=== PATIENT | female | born 1955 | race Caucasian/White ===

== ENCOUNTER 2017-05-01 06:40 | Day surgery (SDC) | payer MEDICAID ==
[2017-04-26 10:36] LABS: HEMATOCRIT 41.9 % (36.0-47.0); HEMOGLOBIN 14.1 g/dL (12.0-15.5); MEAN CORPUSCULAR HEMOGLOBIN 30.8 pg (27.0-33.4); MEAN CORPUSCULAR HGB CONC 33.7 g/dL (32.0-36.0); MEAN CORPUSCULAR VOLUME 92 fl (80-97); PLATELET COUNT 174 10^3/uL (150-450); RED BLOOD COUNT 4.57 10^6/uL (3.72-5.28); RED CELL DISTRIBUTION WIDTH 13.2 % (11.5-14.0); WHITE BLOOD COUNT 6.6 10^3/uL (4.0-10.5)
--- NOTE | 2017-04-26 14:04 | EKG REPORT ---
SEVERITY:- NORMAL ECG - SINUS RHYTHM : Confirmed by: Milton Tineo MD 26-Apr-2017 14:03:35
[~2017-05-01 06:40] MED LIST: CEFAZOLIN 1 GM/D5W RTU 1 GM/50 ML RTUPB IV PRN; LACTATED RINGERS 1000 ML IV PRN; LIDOCAINE 0.5% INJ-PF (5 MG/ML) 50 ML SDV SUBCUT PRN
[2017-05-01] MEDS ORDERED: LIDOCAINE 1% INJ-PF (10 MG/ML) 30 ML SDV ONE (07:17)
[2017-05-01] MEDS ORDERED: ALBUTEROL SULFATE 0.083% NEB 2.5 MG/3 ML AMPUL NEB ONE (08:13)
[2017-05-01] MEDS ORDERED: KETAMINE HCL INJ 500 MG/10 ML VIAL ONE (09:43)
[2017-05-01] MEDS ORDERED: MIDAZOLAM 2 MG/2 ML INJ ONE (09:43)
[2017-05-01] MEDS ORDERED: FENTANYL CITRATE INJ/PF 100 MCG/2 ML AMPUL ONE (09:43)
[2017-05-01] MEDS ORDERED: PROPOFOL INJ 200 MG/20 ML VIAL IV ONE (09:45)
[2017-05-01] MEDS ORDERED: PROMETHAZINE HCL INJ 25 MG/1 ML VIAL IV PRN (10:44)
[2017-05-01] MEDS ORDERED: FENTANYL CITRATE INJ/PF 100 MCG/2 ML AMPUL IV PRN ×3 (10:44)
[2017-05-01] MEDS ORDERED: DIPHENHYDRAMINE HCL 50 MG/ML VIAL IV PRN (10:44)
--- NOTE | 2017-05-01 10:54 | Operative Report ---
Operative Report DATE OF SURGERY: 05/01/17 PREOPERATIVE DIAGNOSIS: Lipomas right upper extremity POSTOPERATIVE DIAGNOSIS: Same with small suspicious skin lesion right upper extremity OPERATION: 1. Excision of right upper extremity lipoma, lateral posterior aspect. 2. Excision of local skin lesion and underlying lipoma mid right upper arm lateral aspect SURGEON: MADONNA PISANO 1ST LETTER SORTING MACHINE OPERATOR: GAYLE SANTACRUZ ANESTHESIA: LMAC TISSUE REMOVED OR ALTERED: Lipomas and skin lesion submitted in one container COMPLICATIONS: None ESTIMATED BLOOD LOSS: Scant INTRAOPERATIVE FINDINGS: See below PROCEDURE: Patient was seen in the preop holding area with the right upper extremity was marked. Attention directed to 2 areas of the upper arm, small lipoma laterally and posteriorly, and then a second area more anterior in the mid upper right arm ; The second area involved a lipomatous subcutaneous mass, as well as an overlying skin lesion approximately 2 mm in diameter suspicious for cell carcinoma. Patient agreed to the plan occluding removal of the 2 subcutaneous masses as well as the overlying skin lesion. Patient taken the main operating room where LMAC anesthesia was induced. Dad positioned appropriately to expose the right upper extremity, with pillows placed under the right arm. The right upper arm lateral posterior aspect was prepped and draped sterile fashion. Surgical plan surgical timeout were conducted. Skin was anesthetized 1% plain lidocaine. The posterior lateral lipoma was excised first. A small incision was made over the lipoma approximately 1/2 cm in diameter. The lipoma was prior to out using a hemostats. It was a well consolidated 2 cm oval mass. Wound closed after hemostasis achieved with a 3-0 Vicryl. The second area of concern was slightly anterior and cephalad to the first incision. The small skin lesion and surrounding skin anesthetized 1% plain lidocaine. A small ellipse was made to excise the skin lesion. We subsequently undermined the subcutaneous lipomatous tissue which was excised using electrocautery. Of note, however, this did not just of a consolidated mass. The region of subcutaneous tissue was submitted in container as the first specimen as well as a small skin lesion. Hemostasis for the second excision was achieved with electrocautery. Wound closed with 3-0 Vicryl benzoin and Steri-Strips. Patient tolerated the procedure well, taken recovery in stable condition.
--- NOTE | 2017-05-01 10:58 | PDOC DISCHARGE SUMMARY ---
Discharge Summary (SDC) - Discharge Final Diagnosis: Lipoma of right arm Date of Surgery: 05/01/17 Discharge Date: 05/01/17 Condition: Stable Treatment or Instructions: Wound care: You may shower in 48 hours. Do not remove paper bandaids (steri strips). Warm water may wash over area, pat dry, cover if needed. Do not scrub. Steri strips will fall off on their on in 1-2 weeks. Pain Medication: You may take Tramadol 10mg one pill every six hours as needed for pain. Activity restriction: Limit use of right arm until follow up appointment in 7-10 days. Follow up appointment: Follow up with Rafaela Blunt PA-C at [facility] in 7-10 days. Call clinic sooner with any questions/concerns or if area becomes red, foul- smelling drainage, or swollen. [facility]: [phone] Prescriptions: Ketorolac Tromethamine [Toradol 10 mg Tablet] 10 mg PO Q6HP PRN #25 tablet PRN Reason: Referrals: KURTIS AMARAL FNP [Primary Care Provider] - Discharge Diet: As Tolerated Discharge Activity: Activity As Tolerated Report the Following to Your Physician Immediately: Fever over 101 Degrees, Swelling, Warmth, Drainage-Foul Smelling
[2017-05-01 12:57] VITALS: BP 140/82
[2017-05-01] MEDS ORDERED: LIDOCAINE 2% INJ-PF (20 MG/ML) 2 ML AMPUL ONE (14:46)
== END 2017-05-01 12:45 | disposition home or self-care (01) ==
LOC: OROUT 06:40
PROVIDERS: ATTEND Surgery
PROC: 0HBBXZX Excision of Right Upper Arm Skin, External Approach, Diagnostic (ICD-10-PCS; 2017-05-01)
PROC: 0JBD0ZZ Excision of Right Upper Arm Subcutaneous Tissue and Fascia, Open Approach (ICD-10-PCS; principal; 2017-05-01 09:30)
DX: D17.21 Benign lipomatous neoplasm of skin and subcutaneous tissue of right arm (principal); B07.9 Viral wart, unspecified; I10 Essential (primary) hypertension; F17.210 Nicotine dependence, cigarettes, uncomplicated; E66.9 Obesity, unspecified; Z68.42 Body mass index [BMI] 45.0-49.9, adult; Z88.8 Allergy status to other drugs, medicaments and biological substances; Z79.1 Long term (current) use of non-steroidal anti-inflammatories (NSAID); Z79.899 Other long term (current) drug therapy
CPT/HCPCS: 93005; 36415; 85027; 88304 ×2; 93010; 94640; 11402; J2250; J0690; J3010; J3490 ×3; J2704; 400

== ENCOUNTER → 2017-06-18 | Outpatient (CLI) | payer MEDICAID ==
--- NOTE | 2017-06-18 10:31 | RADIOLOGY REPORT (SQ) ---
EXAM DESCRIPTION: CHEST PA/LATERAL COMPLETED DATE/TIME: 06/18/2017 8:35 am REASON FOR STUDY: COUGH COMPARISON: None. EXAM PARAMETERS: NUMBER OF VIEWS: two views TECHNIQUE: Digital Frontal and Lateral radiographic views of the chest acquired. RADIATION DOSE: NA LIMITATIONS: none FINDINGS: LUNGS AND PLEURA: No opacities, masses or pneumothorax. No pleural effusion. MEDIASTINUM AND HILAR STRUCTURES: No masses or contour abnormalities. HEART AND VASCULAR STRUCTURES: Heart normal size. No evidence for failure. BONES: No acute findings. Mild thoracic spondylosis. HARDWARE: None in the chest. OTHER: No other significant finding. IMPRESSION: NO SIGNIFICANT RADIOGRAPHIC FINDING IN THE CHEST. TECHNICAL DOCUMENTATION: JOB ID: [id number] [employer]- All Rights Reserved Reading location - IP/workstation name: [email or web address]
== END ==
LOC: OD 08:23
PROVIDERS: ATTEND Physician Assistant
DX: R05 Cough (principal)
CPT/HCPCS: 71046; 87070; 87077; 87205

== ENCOUNTER → 2017-06-28 | Outpatient (CLI) | payer MEDICAID ==
[2017-06-28 10:06] LABS: APPEARANCE,URINE CLEAR; BILIRUBIN,URINE NEGATIVE (NEGATIVE); COLOR,URINE YELLOW; GLUCOSE, URINE NEGATIVE (NEGATIVE); KETONES,URINE NEGATIVE (NEGATIVE); LEUKOCYTE ESTERASE,URINE NEGATIVE (NEGATIVE); NITRITE,URINE NEGATIVE (NEGATIVE); PROTEIN,URINE NEGATIVE (NEGATIVE); URINE SPECIFIC GRAVITY 1.024; UROBILINOGEN,URINE NEGATIVE mg/dL (<2.0)
[2017-06-28 10:08] LABS: ABSOLUTE EOSINOPHILS # (AUTO) 0.2 10^3/uL (0.0-0.6); ABSOLUTE LYMPHOCYTES (AUTO) 1.9 10^3/uL (0.5-4.7); ABSOLUTE MONOCYTES (AUTO) 0.4 10^3/uL (0.1-1.4); BASOPHILS % (AUTO) 0.7 % (0-2); EOSINOPHILS % (AUTO) 3.5 % (0-6); HEMATOCRIT 39.6 % (36.0-47.0); HEMOGLOBIN 13.3 g/dL (12.0-15.5); LYMPHOCYTES % (AUTO) 34.8 % (13-45); MEAN CORPUSCULAR HEMOGLOBIN 30.5 pg (27.0-33.4); MEAN CORPUSCULAR HGB CONC 33.5 g/dL (32.0-36.0); MEAN CORPUSCULAR VOLUME 91 fl (80-97); MONOCYTES % (AUTO) 7.6 % (3-13); PLATELET COUNT 150 10^3/uL (150-450); RED BLOOD COUNT 4.34 10^6/uL (3.72-5.28); RED CELL DISTRIBUTION WIDTH 13.7 % (11.5-14.0); SEGMENTED NEUTROPHILS % (AUTO) 53.4 % (42-78); TOTAL CELLS COUNTED % (AUTO) 100 %; WHITE BLOOD COUNT 5.6 10^3/uL (4.0-10.5)
[2017-06-28 10:29] LABS: ANION GAP 9 (5-19); BLOOD UREA NITROGEN 20 mg/dL (7-20); CALCIUM 9.1 mg/dL (8.4-10.2); CARBON DIOXIDE 25 mmol/L (22-30); CHLORIDE 108 mmol/L (98-107); GLUCOSE 86 mg/dL (75-110); POTASSIUM 4.6 mmol/L (3.6-5.0); SODIUM 141.5 mmol/L (137-145)
--- NOTE | 2017-06-28 13:09 | EKG REPORT ---
SEVERITY:- OTHERWISE NORMAL ECG - SINUS RHYTHM BORDERLINE LEFT AXIS DEVIATION : Confirmed by: Milton Tineo MD 28-Jun-2017 13:07:58
== END ==
LOC: OD 08:43
PROVIDERS: ATTEND Orthopaedic Surgery
DX: Z01.818 Encounter for other preprocedural examination (principal)
CPT/HCPCS: 36415; 80048; 81001; 85025; 93005; 93010

== ENCOUNTER 2017-07-25 07:57 | Inpatient (IN) | payer MEDICAID ==
[~2017-07-25 07:57] MED LIST changes: -CEFAZOLIN 1 GM/D5W RTU 1 GM/50 ML RTUPB IV PRN; +CEFAZOLIN SODIUM 2 GM in NORMAL SALINE 100 ML IV PRN
--- NOTE | 2017-07-25 09:54 | Physician Advisory Note ---
Physician Advisor ProgressNote .: Pursuant to the plan for [facility], I have reviewed the medical record for this patient. Physician Advisor Statement: Please document the points listed below to support Inpatient status & surgical necessity: Status: "I fully expect this patient to require at least 2 nights of hospital care & monitoring post-op because " - very debilitated prior to surgery (can't walk >1 mile or go up flight of stairs or lift/carry groceries or bend/kneel/stoop, & very limited in getting on /off toilet, dressing self/tying shoelaces, vacuuming, ...), so not likely to progress quickly with PT? - smoker 1ppd affecting healing? - morbid obesity w/BMI 45.8? - other? OR: hold off on ordering Inpatient status until patient proves post-op to need a 2nd MN in hospital (keeping outpatient until then) Surgical necessity: H&P nicely documents pt's sx & exam findings, use of NSAIDS/analgesics & injections (though please include how long each nonsurgical option has been tried, & doses of the Rx.s used). However, [facility] also expects details as below to support need for surgery - Please explicitly document: 1. all specific x-ray/scan findings present that [facility] looks for: subchondral cysts, subchondral sclerosis, periarticular osteophytes, joint space narrowing, joint subluxation, AVN/osteonecrosis). 2. which ADLs are interfered with by pain or functional disability from OA ( not just what is painful to do) Thanks for your help - & your patience with all the nit-picky documentation details that [facility] now requires to avoid payment denials! CK
[2017-07-25] MEDS ORDERED: THROMBIN (BOVINE) TOPICAL 20000 UNIT VIAL ONE (09:55)
[2017-07-25] MEDS ORDERED: THROMBIN (BOVINE) 5000 UNIT EPITAXIS KIT ONE (09:55)
[2017-07-25] MEDS ORDERED: BUPIVACAINE INJ/PF LIPOSOME/PF 266 MG/20 ML SDV ONE (09:56)
[2017-07-25] MEDS ORDERED: PROPOFOL INJ 200 MG/20 ML VIAL IV ONE ×2 (11:27→12:53)
[2017-07-25] MEDS ORDERED: ACETAMINOPHEN 100 ML IV ONE ×2 (11:27→20:23)
[2017-07-25] MEDS ORDERED: ONDANSETRON HCL INJ/PF 4 MG/2 ML SDV ONE (11:27)
[2017-07-25] MEDS ORDERED: LIDOCAINE 2% INJ-PF (20 MG/ML) 10 ML AMPUL ONE (11:27)
[2017-07-25] MEDS ORDERED: EPHEDRINE SULFATE INJ 50 MG/1 ML AMPULE ONE ×2 (11:27→12:52)
[2017-07-25] MEDS ORDERED: TETRACAINE HCL/PF 20MG/2ML AMPULE (SPINAL) ONE (11:31)
[2017-07-25] MEDS ORDERED: MIDAZOLAM 2 MG/2 ML INJ ONE ×2 (11:35→13:10)
[2017-07-25] MEDS ORDERED: ONDANSETRON HCL INJ/PF 4 MG/2 ML SDV IV PRN (12:59)
[2017-07-25] MEDS ORDERED: MEPERIDINE HCL/PF INJ 25 MG/1 ML DISP.SYRIN IV PRN (12:59)
[2017-07-25] MEDS ORDERED: MORPHINE SULFATE 10 MG/ML INJ IV PRN ×3 (12:59→14:23)
[2017-07-25] MEDS ORDERED: OXYCODONE-ACETAMINOPHEN 5-325 MG TABLET PO PRN ×2 (12:59)
[2017-07-25] MEDS ORDERED: FENTANYL CITRATE INJ/PF 100 MCG/2 ML AMPUL IV PRN ×3 (12:59)
[2017-07-25] MEDS ORDERED: DIPHENHYDRAMINE HCL 50 MG/ML VIAL IV PRN ×2 (12:59→14:23)
[2017-07-25] MEDS ORDERED: PROMETHAZINE HCL INJ 25 MG/1 ML VIAL IV PRN ×2 (12:59)
[2017-07-25] MEDS ORDERED: FENTANYL CITRATE INJ/PF 100 MCG/2 ML AMPUL ONE (13:28)
[2017-07-25] MEDS: FENTANYL CITRATE INJ/PF 100 MCG/2 ML AMPUL ONE ×2 (14:19→14:24)
[2017-07-25] MEDS ORDERED: ACETAMINOPHEN 325 MG TABLET PO PRN (14:22)
[2017-07-25] MEDS ORDERED: MAG HYDROX/AL HYDROX/SIMETH SUSP 30 ML UDCUP PO PRN (14:22)
[2017-07-25] MEDS ORDERED: MORPHINE SULFATE 10 MG/ML INJ ONE (14:32)
--- NOTE | 2017-07-25 15:39 | RADIOLOGY REPORT (SQ) ---
EXAM DESCRIPTION: KNEE RIGHT 2 VIEWS COMPLETED DATE/TIME: 07/25/2017 3:28 pm REASON FOR STUDY: Post OP -Long Cassette in PACU M17.11 UNILATERAL PRIMARY OSTEOARTHRITIS, RIGHT KN EE COMPARISON: None. NUMBER OF VIEWS: Two views right knee TECHNIQUE: Digital radiographic images of the right knee post-procedure. LIMITATIONS: None. FINDINGS: BONES: No worrisome or unexpected findings post-procedure. DEVICE: Right total knee replacement with patellar resurfacing SOFT TISSUES: No worrisome findings. Expected postoperative soft tissue changes. IMPRESSION: SATISFACTORY POSTOPERATIVE RIGHT KNEE. TECHNICAL DOCUMENTATION: JOB ID: [id number] [employer]- All Rights Reserved Reading location - IP/workstation name: [email or web address]
[2017-07-25] MEDS: MORPHINE SULFATE 10 MG/ML INJ IV PRN (16:41)
[2017-07-25] MEDS: ONDANSETRON 4 MG TAB.RAPDIS PO PRN (16:41)
[2017-07-25] MEDS ORDERED: CEFAZOLIN 2 GM/D5W RTU 50 ML IV SCH (18:00)
[2017-07-25] MEDS: KETOROLAC TROMETHAMINE INJ/PF 30 MG/1 ML SDV IV SCH (18:24)
[2017-07-25] MEDS: SENNOSIDES/DOCUSATE 8.6-50 MG 1 EACH TABLET PO SCH (18:24)
[2017-07-25] MEDS: PREGABALIN 75 MG CAPSULE PO SCH (18:24)
[2017-07-25] MEDS: CEFAZOLIN SODIUM 2 GM in NORMAL SALINE 100 ML IV SCH (18:24)
[2017-07-25] MEDS: OXYCODONE HCL IR 5 MG TABLET PO PRN (19:46)
[2017-07-25] MEDS: OXYCODONE HCL SR 10 MG TABLET PO SCH (21:58)
[2017-07-25] MEDS: RIVAROXABAN 10 MG TABLET PO SCH (21:59)
[2017-07-26] MEDS: KETOROLAC TROMETHAMINE INJ/PF 30 MG/1 ML SDV IV SCH ×5 (00:10→23:35)
[2017-07-26] MEDS: CEFAZOLIN SODIUM 2 GM in NORMAL SALINE 100 ML IV SCH ×3 (00:11→12:11)
[2017-07-26] MEDS ORDERED: VANCOMYCIN HCL 1,000 MG in DEXTROSE 5%-WATER 250 ML IV ONE (02:00)
[2017-07-26] MEDS: OXYCODONE HCL IR 5 MG TABLET PO PRN ×4 (02:54→23:35)
[2017-07-26] MEDS: LANSOPRAZOLE 30 MG TAB.RAP.DR PO SCH (05:52)
[2017-07-26] MEDS: RINGERS SOLUTION,LACTATED 1,000 ML IV PRN ×2 (05:59→13:52)
[2017-07-26 06:26] LABS: HEMATOCRIT 33.1 % (36.0-47.0); HEMOGLOBIN 11.3 g/dL (12.0-15.5); MEAN CORPUSCULAR HEMOGLOBIN 31.3 pg (27.0-33.4); MEAN CORPUSCULAR HGB CONC 34.1 g/dL (32.0-36.0); MEAN CORPUSCULAR VOLUME 92 fl (80-97); PLATELET COUNT 126 10^3/uL (150-450); RED BLOOD COUNT 3.61 10^6/uL (3.72-5.28); RED CELL DISTRIBUTION WIDTH 13.1 % (11.5-14.0); WHITE BLOOD COUNT 10.1 10^3/uL (4.0-10.5)
[2017-07-26 06:42] LABS: ANION GAP 10 (5-19); BLOOD UREA NITROGEN 24 mg/dL (7-20); CALCIUM 8.4 mg/dL (8.4-10.2); CARBON DIOXIDE 26 mmol/L (22-30); CHLORIDE 103 mmol/L (98-107); GLUCOSE 141 mg/dL (75-110); POTASSIUM 4.4 mmol/L (3.6-5.0); SODIUM 138.6 mmol/L (137-145)
--- NOTE | 2017-07-26 08:41 | Physician Advisory Note ---
Physician Advisor ProgressNote .: [facility], I have reviewed the medical record for this patient. Physician Advisor Statement: Status f/u: Per OT today, "patient requiring max-total Assistance with functional mobility and toileting tasks". Standing balance impaired, needing 2 staff for safety. Dependent with toileting, needing significant assistance with bathing. Therefore, clearly not yet safe for d/c home. Appropriate for Inpatient status. CK
[2017-07-26] MEDS: SENNOSIDES/DOCUSATE 8.6-50 MG 1 EACH TABLET PO SCH ×2 (10:39→17:50)
[2017-07-26] MEDS: PREGABALIN 75 MG CAPSULE PO SCH ×2 (10:39→17:50)
[2017-07-26] MEDS: OXYCODONE HCL SR 10 MG TABLET PO SCH ×2 (10:39→21:10)
[2017-07-26] MEDS: PRENATAL VITAMIN W DHA CAPSULE PO SCH (10:40)
[2017-07-26] MEDS: ONDANSETRON 4 MG TAB.RAPDIS PO PRN (10:43)
--- NOTE | 2017-07-26 14:13 | Operative Report ---
Operative Report DATE OF SURGERY: 07/25/17 PREOPERATIVE DIAGNOSIS: Right knee osteoarthritis POSTOPERATIVE DIAGNOSIS: Same OPERATION: Right total knee arthroplasty SURGEON: RITA CURRAN ANESTHESIA: Spinal TISSUE REMOVED OR ALTERED: Bone cuts COMPLICATIONS: None ESTIMATED BLOOD LOSS: 50 mL INTRAOPERATIVE FINDINGS: As above PROCEDURE: Patient was brought to the operating room and received a spinal anesthetic. Patient was placed in supine position and a thigh tourniquet was applied to the right lower extremity. Timeout was done identifying the right knee is a correct site after the leg was prepped and draped in a normal sterile surgical fashion. A standard medial parapatellar approach the knee was done. This exposed the knee and showed the degenerative nature and [id number] nature of her knee. I everted the patella and flexed the knee and placed the leg in the baker where I was able to then resect my meniscus fat pad and ACL and PCL. I did a medial release which allowed me to sublux any tibia anteriorly and let me to do my tibial cut first. I used a drill and to allow me to place my intramedullary guide. Also satisfied with the 2 mm resection off of the low side over the affected side I proceeded to pin and remove the intramedullary device and use a saw to do my tibial cut. Turned my attention to the femur where first in my distal cut during the same procedure of drilling and placing my intramedullary device and securing the guide I did a 9 mm distal femoral cut and after that I removed the guide and placed my sizing guide which I went with a 6 and pinned it and placed my 4-in-1 block which this guide would allow me to do my 4-in-1 bone cuts. I did remove this and placed the box cutting guide and did my box cut successfully and allowed me to trial of the femoral component. I was satisfied with the component so I then finished completing my tibial component and made sure that my extension gap was intact placed in the trial baseplate with a trial spacer. I was satisfied with a 11 mm spacer and has stable knee with varus and valgus stressing and extension and flexion. This allowed me now to remove the components and do my patellar cut. I went with a 32 mm offset patella and drilled and placed the bone. I was satisfied with the tracking of though slightly was tracking laterally it was still within the groove. All components were removed and pulsatile lavage was used to clean the extremity while the cement was mixed in the back table and the final components were opened. I was able then cemented first the tibial tray followed by the femoral component and then the patella button. I use Exparel to inject the posterior capsule and periosteum. At this point and I placed the final tibial spacer which was 11 mm spacer and then the continue to finish injecting the Exparel. I closed my arthrotomy using #1 Vicryl to reapproximate the capsule and quadriceps tendon split. I then proceeded to approximate this obtains fat with 0 Vicryl and and used 2-0 Vicryl to close my skin. Elizabeth were used for the skin and Acticoat was applied over the incision. OpSite dressing followed by soft roll and Cruz bandage was applied. Drapes were removed and tourniquet was down at 90 minutes. Patient was then transferred to PACU in stable condition
--- NOTE | 2017-07-26 14:30 | PDOC PROGRESS REPORT ---
Subjective Progress Note for:: 07/26/17 Subjective:: Patient has some pain issues last night and bled through the dressing that required reinforcement. Reason For Visit: STATUS POST RIGHT TOTAL KNEE ARTHROPLASTY Physical Exam Vital Signs: Temp Pulse Resp BP Pulse Ox 37.2 C 82 16 88/56 L 93 07/26/17 03:27 07/26/17 03:27 07/26/17 03:27 07/26/17 03:27 07/26/17 03:27 Intake & Output 07/25/17 07/26/17 07/27/17 06:59 06:59 06:59 Intake Total 4434 Output Total 30952 Balance -48463 General appearance: PRESENT: no acute distress Head exam: PRESENT: atraumatic Adult Front & Back Image: 1 - Dressing is reinforced due to bleeding. Has significant pain with range of motion of the therapy worked with her and got up to about 90. Neurovascular intact distally. Her calf is soft. Negative Homans sign Results Laboratory Results: 07/26/17 05:22 07/26/17 05:22 07/26/17 07/26/17 05:22 05:22 WBC 10.1 RBC 3.61 L Hgb 11.3 L Hct 33.1 L MCV 92 MCH 31.3 MCHC 34.1 RDW 13.1 Plt Count 126 L Sodium 138.6 Potassium 4.4 Chloride 103 Carbon Dioxide 26 Anion Gap 10 BUN 24 H Creatinine 0.88 Est GFR ( Amer) > 60 Est GFR (Non-Af Amer) > 60 Glucose 141 H Calcium 8.4 Impressions: Knee X-Ray 07/25/17 14:22 IMPRESSION: SATISFACTORY POSTOPERATIVE RIGHT KNEE. Status: Image reviewed by me Assessment & Plan - Diagnosis (1) Status post total knee replacement Is this a current diagnosis for this admission?: Yes Plan: Patient has significant pain. We will keep her for pain control. I anticipate her ambulating enough for her to be discharged tomorrow or no later than Saturday. She does have home health set up for Saturday. Discussed with nurse to change dressing at discharge. Patient will continue weight-bear as tolerated continue Xarelto for DVT prophylaxis. Discharge prescriptions were sent to pharmacy and printed ones are in the chart.
[2017-07-26] MEDS: MORPHINE SULFATE 10 MG/ML INJ IV PRN (20:05)
[2017-07-26] MEDS: RIVAROXABAN 10 MG TABLET PO SCH (21:10)
[2017-07-27] MEDS: MORPHINE SULFATE 10 MG/ML INJ IV PRN (02:55)
[2017-07-27] MEDS: OXYCODONE HCL IR 5 MG TABLET PO PRN ×3 (05:14→18:35)
[2017-07-27] MEDS: KETOROLAC TROMETHAMINE INJ/PF 30 MG/1 ML SDV IV SCH ×2 (05:14→12:48)
[2017-07-27] MEDS: LANSOPRAZOLE 30 MG TAB.RAP.DR PO SCH (05:14)
[2017-07-27 07:18] LABS: HEMATOCRIT 29.6 % (36.0-47.0); HEMOGLOBIN 10.1 g/dL (12.0-15.5); MEAN CORPUSCULAR HEMOGLOBIN 31.2 pg (27.0-33.4); MEAN CORPUSCULAR HGB CONC 34.2 g/dL (32.0-36.0); MEAN CORPUSCULAR VOLUME 91 fl (80-97); PLATELET COUNT 115 10^3/uL (150-450); RED BLOOD COUNT 3.25 10^6/uL (3.72-5.28); WHITE BLOOD COUNT 11.3 10^3/uL (4.0-10.5)
[2017-07-27] MEDS: OXYCODONE HCL SR 10 MG TABLET PO SCH (10:28)
[2017-07-27] MEDS: PREGABALIN 75 MG CAPSULE PO SCH ×2 (10:29→18:36)
[2017-07-27] MEDS: SENNOSIDES/DOCUSATE 8.6-50 MG 1 EACH TABLET PO SCH ×2 (10:29→18:36)
[2017-07-27] MEDS: PRENATAL VITAMIN W DHA CAPSULE PO SCH (10:30)
--- NOTE | 2017-07-27 14:57 | PDOC PROGRESS REPORT ---
Subjective Progress Note for:: 07/27/17 Subjective:: Patient's pain has been improving. But notes increased swelling of her knee over the past 24 hours. Has been undergoing physical therapy with some improvement. Denies fever chills or sweats. Denies chest pain or shortness of breath. Reason For Visit: STATUS POST RIGHT TOTAL KNEE ARTHROPLASTY Physical Exam Vital Signs: Temp Pulse Resp BP Pulse Ox 98.8 F 90 12 106/61 98 07/27/17 11:00 07/27/17 11:00 07/27/17 11:00 07/27/17 11:00 07/27/17 11:00 Intake & Output 07/26/17 07/27/17 07/28/17 06:59 06:59 06:59 Intake Total 4434 2507 Output Total 62313 1400 Balance -57889 1107 Musculoskeletal exam: PRESENT: other - Right knee: Noted swelling and ecchymosis throughout the lower extremity. Compartments soft and compressible no sign of compartment syndrome. Intact plantar flexion/dorsiflexion. Subjective altered sensation on the dorsum of the foot. Dorsalis pedis pulse 2+ . Tenderness throughout the posterior calf with equivocal Homans sign. Surgical incision well approximated no erythema or drainage. Results Laboratory Results: 07/27/17 07:00 07/26/17 05:22 07/27/17 07:00 WBC 11.3 H RBC 3.25 L Hgb 10.1 L Hct 29.6 L MCV 91 MCH 31.2 MCHC 34.2 RDW 13.0 Plt Count 115 L Impressions: Knee X-Ray 07/25/17 14:22 IMPRESSION: SATISFACTORY POSTOPERATIVE RIGHT KNEE. Assessment & Plan - Diagnosis (1) Status post total knee replacement Is this a current diagnosis for this admission?: Yes Plan: Postop day #2 status post right total knee arthroplasty. #1 physical therapy as per total knee protocol #2 Xarelto for DVT prophylaxis #3 pain control #4 will obtain venous duplex of the right lower extremity given patient's swelling and pain however likelihood of DVT limited given the adequate DVT prophylaxis postoperatively. #5 discharge planning possible discharge home 07/28/17
[2017-07-27] MEDS: ONDANSETRON 4 MG TAB.RAPDIS PO PRN (19:28)
[2017-07-27] MEDS: RIVAROXABAN 10 MG TABLET PO SCH (21:05)
[2017-07-28] MEDS: OXYCODONE HCL IR 5 MG TABLET PO PRN ×3 (00:29→12:13)
[2017-07-28] MEDS: MORPHINE SULFATE 10 MG/ML INJ IM PRN ×2 (03:50→09:45)
[2017-07-28 04:48] LABS: HEMATOCRIT 27.3 % (36.0-47.0); HEMOGLOBIN 9.3 g/dL (12.0-15.5); MEAN CORPUSCULAR HEMOGLOBIN 30.9 pg (27.0-33.4); MEAN CORPUSCULAR VOLUME 91 fl (80-97); PLATELET COUNT 112 10^3/uL (150-450); RED CELL DISTRIBUTION WIDTH 12.9 % (11.5-14.0); WHITE BLOOD COUNT 9.7 10^3/uL (4.0-10.5)
[2017-07-28] MEDS: LANSOPRAZOLE 30 MG TAB.RAP.DR PO SCH (06:36)
[2017-07-28] MEDS: PRENATAL VITAMIN W DHA CAPSULE PO SCH (09:44)
[2017-07-28] MEDS: SENNOSIDES/DOCUSATE 8.6-50 MG 1 EACH TABLET PO SCH (09:44)
[2017-07-28] MEDS: PREGABALIN 75 MG CAPSULE PO SCH (09:44)
[2017-07-28 11:34] VITALS: BP 121/58
--- NOTE | 2017-07-28 12:18 | PDOC DISCHARGE SUMMARY ---
General - Admit/Disc Date/PCP Admission Date/Primary Care Provider: 07/25/17 07:57 JEREMIAH QUIROZ Discharge Date: 07/28/17 - Discharge Diagnosis (1) Status post total knee replacement Is this a current diagnosis for this admission?: Yes - Additional Information Resuscitation Status: Full Code Discharge Diet: As Tolerated Discharge Activity: No Driving, Keep Legs Elevated, Slowly Increase Activity, Walk Frequently Prescriptions: Oxycodone HCl/Acetaminophen [Percocet 7.5-325 mg Tablet] 1 - 2 tab PO ASDIR PRN #60 tab PRN Reason: Pregabalin [Lyrica 75 mg Capsule] 75 mg PO BID #14 capsule Rivaroxaban [Xarelto 10 mg Tablet] 10 mg PO QHS #14 tablet Sennosides/Docusate 8.6-50 mg [Senna Plus Tablet] 1 each PO BID PRN #20 tablet PRN Reason: Home Medications: Albuterol Sulfate [Proair HFA] 1 - 2 puff IH PRN PRN 04/26/17 Lisinopril [Prinivil] 10 mg PO DAILY 04/26/17 Diazepam [Valium 5 mg Tablet] 0.5 tab PO DAILY 07/02/17 Ibuprofen 1 cap PO ASDIR PRN 07/02/17 Tiotropium Br/Olodaterol HCl [Stiolto Respimat Inhal Qulin] 1 puff IH DAILY Oxycodone HCl/Acetaminophen [Percocet 7.5-325 mg Tablet] 1 - 2 tab PO ASDIR PRN #60 tab 07/26/17 Pregabalin [Lyrica 75 mg Capsule] 75 mg PO BID #14 capsule 07/26/17 Rivaroxaban [Xarelto 10 mg Tablet] 10 mg PO QHS #14 tablet 07/26/17 Sennosides/Docusate 8.6-50 mg [Senna Plus Tablet] 1 each PO BID PRN #20 tablet 07/26/17 History of Present Illness Patient complains of: Right knee arthritis History of Present Illness: JULIAN LARA is a 62 year old female with progressive pain and functional decrease in mobility due to right knee arthritis. She is admitted to the hospital through the OR and undergoes uncomplicated total right knee arthroplasty. Hospital Course Hospital Course: Patient is admitted to the OR to undergo unconjugated total right knee arthroplasty. She is taken to the PACU in satisfactory condition. She is transferred to the surgical floor where she is seen by nursing staff and by 4 pain management. She is seen by physical therapy for weightbearing and independent ambulation on right lower extremity. She makes progress in her pain is well controlled. There is concern for lower extremity edema and calf tenderness. Therefore venous Doppler ultrasound is ordered to assess for possible DVT. Pending negative results she will be discharged from the hospital today to her home. Physical Exam Vital Signs: Temp Pulse Resp BP Pulse Ox 37.4 C 93 12 121/58 L 95 07/28/17 11:33 07/28/17 11:33 07/28/17 11:33 07/28/17 11:33 07/28/17 11:33 Intake & Output 07/27/17 07/28/17 07/29/17 06:59 06:59 06:59 Intake Total 2507 1134 Output Total 1400 2350 Balance 1107 -1216 General appearance: PRESENT: no acute distress, well-developed, well-nourished Head exam: PRESENT: atraumatic, normocephalic Vascular exam: PRESENT: normal capillary refill Extremities exam: PRESENT: joint swelling Additional comments: Patient lying recumbent in hospital bed with bilateral lower extremities in full extension. Her OpSite dressing over right lower extremity is clean dry and intact. This is left in place. There is evidence of resolving postoperative edema and ecchymosis over right knee. She is draw frame tender to palpation on medial lateral aspects of surgical incision as well as anterior aspect of right lower extremity. No calf tenderness. Still evidence of equivocal Homans sign. No sensory or motor deficits noted. +2 dorsalis pedis pulses and less than 2 seconds capillary refill to toes on right lower extremity. Leg lengths are equal. Musculoskeletal exam: PRESENT: ambulatory Additional comments: Patient has made progress with physical therapy and ambulated 30 feet independently today. She has also completed independent exercises and was able to demonstrate limited range of knee flexion and extension on exam. It was stressed again to the patient the importance of continuing range of motion exercises including flexion and extension of the right knee as well as working towards further independent ambulation. She voiced understanding. She will continue to work with home physical therapy to improve strength range of motion of right lower extremity. Additional comments: Postoperative edema of right lower extremity as well as ecchymosis is resolving as noted previously. No open sores, abrasions or purulent drainage noted. Results Laboratory Results: 07/28/17 04:22 07/26/17 05:22 07/28/17 04:22 WBC 9.7 RBC 3.00 L Hgb 9.3 L Hct 27.3 L MCV 91 MCH 30.9 MCHC 34.0 RDW 12.9 Plt Count 112 L Impressions: Knee X-Ray 07/25/17 14:22 IMPRESSION: SATISFACTORY POSTOPERATIVE RIGHT KNEE. Qualifiers - * PATEINT BEING DISCHARGED WITH ANY OF THE FOLLOWING DIAGNOSIS?: No Plan Discharge Plan: 62-year-old white female 3 days status post total right knee arthroplasty. She has progressed well in the hospital postoperatively with pain control as well as physical therapy. She has ambulated up to 30 feet independently. Importance of continuing range of motion exercises and working towards further ambulation was stressed to the patient. She voiced understanding. She will continue to work with home physical therapy to improve strength range of motion of right lower extremity. Postoperative ecchymosis and edema resolving. There has been an concern for possible DVT due to onset of pain, edema and equivocal Homans sign in right lower extremity. A stat venous Doppler ultrasound has been ordered. It has not yet been completed. Nursing staff has been instructed to contact on-call orthopedic staff with results of ultrasound once completed.Pending the results of the ultrasound are negative for DVT, patient can be discharged to her home today. She will follow-up with Dr. Baker at [facility] for surgery 2 weeks postoperatively for reevaluation and staple removal. Time Spent: Less than 30 Minutes
--- NOTE | 2017-07-29 09:42 | XCELERA REPORT ---
[address] [address] Lower Extremity Venous Evaluation Name: JULIAN LARA Age: 62 yrs Gender: Female : 1955 Patient Status: Inpatient Patient Location: [address] [place], [place] [address] Study Date: 07/28/2017 11:57 AM Procedure: Color flow and duplex imaging of the veins of the right lower extremity as well as the left Common Femoral vein. Reason For Study: Right Knee swelling 3 days s/p knee replacement Ordering Physician: JOSE ARMANDO LEIJA Performed By: Sara Soria Right Sided Venous Evaluation Considerable swelling in lower extremity makes visualization of Femoral vein difficult. Normal vessel filling wall to wall, compression and augmentation as well as Colour flow down to the infrageniculate veins. Left Sided Venous Evaluation The left common femoral vein is fully compressible. Spontaneous and phasic flow is present in the left common femoral vein. Interpretation Summary No duplex evidence of DVT or obstruction in the right lower extremity nor in the left Common Femoral vein. : JOSE ARMANDO LEIJA > Slade Davenport
== END 2017-07-28 14:02 | disposition home health service (06) | DRG 470 ==
LOC: INOR 07:57 → 4S 15:38
PROVIDERS: ADMIT Orthopaedic Surgery; ATTEND Orthopaedic Surgery
PROC: 0SRC0J9 Replacement of Right Knee Joint with Synthetic Substitute, Cemented, Open Approach (ICD-10-PCS; principal; 2017-07-25 10:00)
DX: M17.11 Unilateral primary osteoarthritis, right knee (principal); G89.18 Other acute postprocedural pain; I10 Essential (primary) hypertension; F17.210 Nicotine dependence, cigarettes, uncomplicated
CPT/HCPCS: 01402; 36415; 80048; 85027; 88305; 88311; 93971; 94799; C1776; C9290; J0131; J0690; J1885; J2250; J2270; J2405; J2704; J3010; J3370; J3490; J7060; J7120; S0119

== ENCOUNTER 2017-07-30 15:36 | Emergency (ER) | payer MEDICAID ==
[2017-07-30] MEDS ORDERED: HYDROMORPHONE HCL INJ/PF 2 MG/ML AMPULE IV ONE ×3 (16:05→19:21)
--- NOTE | 2017-07-30 16:09 | ER Document Report ---
ED Medical Screen (RME) - General Chief Complaint: Knee Pain Stated Complaint: LEG PAIN Time Seen by Provider: 07/30/17 16:05 Notes: 62-year-old female presents with increased swelling and pain of her right leg. She had a right total knee replacement [address] Baker and is on Xarelto for DVT prophylaxis. Bruising was improving until this morning when she had worsening bruising and now right ankle pain. PE: Right anterior knee with bandage and no active bleeding. Ecchymosis over right medial thigh and around right ankle. Tender right ankle. I have greeted and performed a rapid initial assessment of this patient. A comprehensive ED assessment and evaluation of the patient, analysis of test results and completion of the medical decision making process will be conducted by additional ED providers. TRAVEL OUTSIDE OF THE [place] IN LAST 30 DAYS: No - Related Data Allergies/Adverse Reactions: No Known Allergies Allergy (Verified 07/02/17 12:49) Past Medical History - Social History Chew tobacco use (# tins/day): No Frequency of alcohol use: Social Drug Abuse: None - Past Medical History Cardiac Medical History: Reports: Hx Hypertension - ON MEDS Denies: Hx Atrial Fibrillation, Hx Congestive Heart Failure, Hx Coronary Artery Disease, Hx Heart Attack, Hx Hypercholesterolemia, Hx Peripheral Vascular Disease, Hx Pulmonary Embolism, Hx Heart Murmur Pulmonary Medical History: Reports: Hx Asthma - PRO AIR PRN, Hx Pneumonia - 4 YRS AGO Denies: Hx Bronchitis, Hx COPD, Hx Respiratory Failure, Hx Sleep Apnea, Hx Tuberculosis Neurological Medical History: Renal/ Medical History: Denies: Hx Peritoneal Dialysis Malignancy Medical History: Denies: Hx Lung Cancer Musculoskeltal Medical History: Reports Hx Arthritis - KNEES , Denies Hx Fibromyalgia, Denies Hx Muscular Dystrophy Psychiatric Medical History: Denies: Hx Bipolar Disorder, Hx Depression, Hx Post Traumatic Stress Disorder , Hx Schizophrenia Traumatic Medical History: Reports: Hx Fractures - foot Past Surgical History: Reports: Hx Tonsillectomy, Hx Tubal Ligation. Denies: Hx Appendectomy, Hx Bowel Surgery, Hx Section, Hx Cholecystectomy, Hx Coronary Artery Bypass Graft, Hx Gastric Bypass Surgery, Hx Herniorrhaphy, Hx Hysterectomy, Hx Mastectomy, Hx Pacemaker - Immunizations Hx Diphtheria, Pertussis, Tetanus Vaccination: No History of Influenza Vaccine for 01/2017 - 06/2017 Season: No Physical Exam - Vital signs Vitals: Temp Pulse Resp BP Pulse Ox 98.3 F 89 18 107/55 L 97 07/30/17 15:48 07/30/17 15:48 07/30/17 15:48 07/30/17 15:48 07/30/17 15:48 Course - Vital Signs Vital signs: Temp Pulse Resp BP Pulse Ox 98.3 F 89 18 107/55 L 97 07/30/17 15:48 07/30/17 15:48 07/30/17 15:48 07/30/17 15:48 07/30/17 15:48 Doctor's Discharge - Discharge Referrals: BRIGETTE VINCENT, JEREMIAH-C [Primary Care Provider] - Follow up as needed
[2017-07-30 16:31] LABS: ABSOLUTE EOSINOPHILS # (AUTO) 0.2 10^3/uL (0.0-0.6); ABSOLUTE LYMPHOCYTES (AUTO) 1.9 10^3/uL (0.5-4.7); ABSOLUTE MONOCYTES (AUTO) 0.8 10^3/uL (0.1-1.4); BASOPHILS % (AUTO) 0.4 % (0-2); HEMATOCRIT 26.1 % (36.0-47.0); HEMOGLOBIN 8.8 g/dL (12.0-15.5); LYMPHOCYTES % (AUTO) 23.5 % (13-45); MEAN CORPUSCULAR HEMOGLOBIN 30.9 pg (27.0-33.4); MEAN CORPUSCULAR HGB CONC 33.8 g/dL (32.0-36.0); MEAN CORPUSCULAR VOLUME 91 fl (80-97); MONOCYTES % (AUTO) 10.2 % (3-13); PLATELET COUNT 190 10^3/uL (150-450); RED BLOOD COUNT 2.86 10^6/uL (3.72-5.28); RED CELL DISTRIBUTION WIDTH 13.2 % (11.5-14.0); SEGMENTED NEUTROPHILS % (AUTO) 62.9 % (42-78); TOTAL CELLS COUNTED % (AUTO) 100 %
[2017-07-30 16:38] LABS: INTERNATIONAL RATION (INR) 1.01; PROTHROMBIN TIME 13.8 SEC (11.4-15.4)
[2017-07-30 16:39] LABS: PARTIAL THROMBOPLASTIN TIME 37.5 SEC (23.5-35.8)
[2017-07-30 16:52] LABS: ALANINE AMINOTRANSFERASE 36 U/L (9-52); ALBUMIN 3.1 g/dL (3.5-5.0); ALKALINE PHOSPHATASE 64 U/L (38-126); ANION GAP 6 (5-19); ASPARTATE AMINO TRANSFERASE 30 U/L (14-36); BILIRUBIN,DIRECT 0.4 mg/dL (0.0-0.4); BLOOD UREA NITROGEN 23 mg/dL (7-20); CALCIUM 8.9 mg/dL (8.4-10.2); CARBON DIOXIDE 30 mmol/L (22-30); CHLORIDE 102 mmol/L (98-107); GLUCOSE 104 mg/dL (75-110); POTASSIUM 4.5 mmol/L (3.6-5.0); SODIUM 138.1 mmol/L (137-145)
--- NOTE | 2017-07-30 17:44 | RADIOLOGY REPORT (SQ) ---
EXAM DESCRIPTION: KNEE RIGHT 3 VIEWS COMPLETED DATE/TIME: 07/30/2017 4:57 pm REASON FOR STUDY: right knee pain and swelling COMPARISON: 07/25/2017 NUMBER OF VIEWS: Two views. TECHNIQUE: AP and lateral radiographic images acquired of the right knee. LIMITATIONS: None. FINDINGS: MINERALIZATION: Normal. BONES: Arthroplasty in good position. JOINT: There appears to be a joint effusion. SOFT TISSUES: Skin markus anteriorly. OTHER: No other significant finding. IMPRESSION: Right knee arthroplasty with joint effusion. Is there clinical evidence of infection? TECHNICAL DOCUMENTATION: JOB ID: [id number] [employer]- All Rights Reserved Reading location - IP/workstation name: [email or web address]
--- NOTE | 2017-07-30 17:45 | ER Document Report ---
ED General - General Chief Complaint: Knee Pain Stated Complaint: LEG PAIN Time Seen by Provider: 07/30/17 16:05 Mode of Arrival: Wheelchair Information source: Patient Notes: This is a 62-year-old female 5 days status post right total knee replacement ( on prophylactic Xarelto) who presents to the emergency room with increased swelling and pain to the right lower extremity all the way up to the groin. Patient states she has had some bleeding from the wound site. TRAVEL OUTSIDE OF THE [place] IN LAST 30 DAYS: No - HPI Onset: Just prior to arrival Onset/Duration: Gradual Quality of pain: No pain Severity: None Pain Level: Denies Associated symptoms: denies: Chest pain, Fever, Shortness of breath Exacerbated by: Denies Relieved by: Denies Similar symptoms previously: No Recently seen / treated by doctor: No - Related Data Allergies/Adverse Reactions: No Known Allergies Allergy (Verified 07/02/17 12:49) Past Medical History - General Information source: Patient - Social History Smoking Status: Unknown if Ever Smoked Cigarette use (# per day): No Chew tobacco use (# tins/day): No Frequency of alcohol use: Social Drug Abuse: None Lives with: Family Family History: None Patient has suicidal ideation: No Patient has homicidal ideation: No - Past Medical History Cardiac Medical History: Reports: Hx Hypertension - ON MEDS Denies: Hx Atrial Fibrillation, Hx Congestive Heart Failure, Hx Coronary Artery Disease, Hx Heart Attack, Hx Hypercholesterolemia, Hx Peripheral Vascular Disease, Hx Pulmonary Embolism, Hx Heart Murmur Pulmonary Medical History: Reports: Hx Asthma - PRO AIR PRN, Hx Pneumonia - 4 YRS AGO Denies: Hx Bronchitis, Hx COPD, Hx Respiratory Failure, Hx Sleep Apnea, Hx Tuberculosis Neurological Medical History: Renal/ Medical History: Denies: Hx Peritoneal Dialysis Malignancy Medical History: Denies: Hx Lung Cancer Musculoskeltal Medical History: Reports Hx Arthritis - KNEES , Denies Hx Fibromyalgia, Denies Hx Muscular Dystrophy Psychiatric Medical History: Denies: Hx Bipolar Disorder, Hx Depression, Hx Post Traumatic Stress Disorder , Hx Schizophrenia Traumatic Medical History: Reports: Hx Fractures - foot Past Surgical History: Reports: Hx Orthopedic Surgery - R knee replacement, right ankle surgery, Hx Tonsillectomy, Hx Tubal Ligation. Denies: Hx Appendectomy, Hx Bowel Surgery, Hx Section, Hx Cholecystectomy, Hx Coronary Artery Bypass Graft, Hx Gastric Bypass Surgery, Hx Herniorrhaphy, Hx Hysterectomy, Hx Mastectomy, Hx Pacemaker - Immunizations Hx Diphtheria, Pertussis, Tetanus Vaccination: No Review of Systems - Review of Systems Constitutional: denies: Chills, Fever EENT: No symptoms reported Cardiovascular: No symptoms reported Respiratory: No symptoms reported Gastrointestinal: No symptoms reported Genitourinary: See HPI Female Genitourinary: See HPI Musculoskeletal: No symptoms reported Skin: No symptoms reported Hematologic/Lymphatic: No symptoms reported Neurological/Psychological: No symptoms reported Physical Exam - Vital signs Vitals: Temp Pulse Resp BP Pulse Ox 98.3 F 89 18 107/55 L 97 07/30/17 15:48 07/30/17 15:48 07/30/17 15:48 07/30/17 15:48 07/30/17 15:48 Notes: Physical exam: GENERAL: 62-year-old female, alert and oriented 3, complaining of right leg swelling and pain HEAD: Atraumatic, normocephalic. EYES: Pupils equal round and reactive to light, extraocular movements intact, sclera anicteric, conjunctiva are normal. ENT: TMs normal, nares patent, oropharynx clear without exudates. Moist mucous membranes. NECK: Normal range of motion, supple without obvious mass or JVD. LUNGS: Breath sounds clear to auscultation bilaterally and equal. No wheezes rales or rhonchi. HEART: Regular rate and rhythm without murmurs, rubs or gallops. ABDOMEN: Soft, normoactive bowel sounds. No tenderness to palpation. No guarding, no rebound. No masses appreciated. EXTREMITIES: Right lower extremity shows significant swelling and bruising. Bruising is on the anterior aspect of the thigh around the knee and down the calf and lower extremity. The wound site has some crusted blood which is been cleaned off and redressed. There is no foul smell, discharge or fluctuance or overlying erythema. NEUROLOGICAL: Cranial nerves II through XII grossly intact. Normal speech, moving all extremities. PSYCH: Normal mood, normal affect. SKIN: Warm, Dry, normal turgor, no rashes or lesions noted. Course - Re-evaluation Re-evalutation: 07/30/17 17:44 Lower extremity Dopplers are limited due to the swelling: There is no evidence of blood clots in the groin or popliteal on the right side. Dorsal pedal pulse is easily obtained by Doppler in the right lower extremity. Wound dressing has been changed: Wound was cleaned and inspected. 07/30/17 19:44 I discussed case with Dr. baker who performed the surgery. He did state that he felt there was a fair amount of bleeding after the surgery and that the swelling which was consistent with this. Given the drop in the patient's hemoglobin and hematocrit, this would account for the swelling. There is no evidence of infection at this time. The plan will be to watch the patient closely. Dr Baker has agreed to see the patient in the office tomorrow. I have discussed this with the patient and she is comfortable going to the office tomorrow. I have advised her to call the office first. - Vital Signs Vital signs: Temp Pulse Resp BP Pulse Ox 98.3 F 88 16 120/54 L 98 07/30/17 19:59 07/30/17 19:59 07/30/17 19:59 07/30/17 19:59 07/30/17 19:59 - Laboratory Result Diagrams: 07/30/17 16:16 07/30/17 16:16 Laboratory results interpreted by me: 07/30/17 07/30/17 07/30/17 16:16 16:16 16:16 RBC 2.86 L Hgb 8.8 L Hct 26.1 L APTT 37.5 H BUN 23 H Total Protein 6.0 L Albumin 3.1 L Discharge - Discharge Clinical Impression: Swelling of right lower extremity, Status post right knee replacement Condition: Stable Disposition: HOME, SELF-CARE Additional Instructions: Continue current medicines. I have discussed your lab work with Dr Baker and he is agreed to see you in the office tomorrow. He wants you to call the office beforehand and let them know that the ER doctor had spoken with him about getting seen in the office tomorrow. Bring a copy of today's labs (in comparison with old labs) to show Dr. Baker. As we discussed, the ultrasound of the leg showed no evidence of blood clots today. He did have a good pulse in the leg as well. Return to the ER for worsening pain, fever (temperature greater than 100.5) or any concerns or getting worse. Referrals: BRIGETTE VINCENT, INPATIENT NURSING AIDE-C [Primary Care Provider] - Follow up as needed RITA MANLEY MD [ACTIVE STAFF] - Follow up tomorrow
--- NOTE | 2017-07-30 17:48 | RADIOLOGY REPORT (SQ) ---
EXAM DESCRIPTION: ANKLE RIGHT COMPLETE COMPLETED DATE/TIME: 07/30/2017 4:57 pm REASON FOR STUDY: right ankle swelling COMPARISON: None. NUMBER OF VIEWS: Three views. TECHNIQUE: AP, lateral, and oblique radiographic images acquired of the right ankle. LIMITATIONS: None. FINDINGS: MINERALIZATION: Normal. BONES: No acute fracture or dislocation. No worrisome bone lesions. JOINTS: No effusions. SOFT TISSUES: A radiopaque surgical implant is positioned between the talus and calcaneus. Soft tiss ue swelling bilaterally. OTHER: No other significant finding. IMPRESSION: Surgical changes with no acute osseous or joint abnormality. There is soft tissue swell ing. TECHNICAL DOCUMENTATION: JOB ID: [id number] [employer]- All Rights Reserved Reading location - IP/workstation name: [email or web address]
[2017-07-30 20:00] VITALS: BP 120/54
--- NOTE | 2017-07-31 08:01 | XCELERA REPORT ---
[address] [address] Lower Extremity Venous Evaluation Name: JULIAN LARA Age: 62 yrs Gender: Female : 1955 Patient Status: Emergency Patient Location: ER Study Date: 07/30/2017 04:23 PM Procedure: Color flow and duplex imaging of the veins of the right lower extremity as well as the left Common Femoral vein. Reason For Study: RLE swelling Ordering Physician: FRANSICO HERNANDEZ Performed By: Rosy Tomlin Right Sided Venous Evaluation Challenge visualizing Femoral vein, distally, due to swelling. Normal vessel filling wall to wall, compression and augmentation as well as Colour flow down to the infrageniculate veins. Left Sided Venous Evaluation The left common femoral vein is fully compressible. Spontaneous and phasic flow is present in the left common femoral vein. Interpretation Summary No duplex evidence of DVT or obstruction in the right lower extremity nor in the left Common Femoral vein. : FRANSICO HERNANDEZ > Slade Davenport
== END 2017-07-30 20:20 | disposition home or self-care (01) ==
LOC: ER 15:36
DX: M79.89 Other specified soft tissue disorders (principal); M79.604 Pain in right leg; Z96.651 Presence of right artificial knee joint; I10 Essential (primary) hypertension; Z79.01 Long term (current) use of anticoagulants; Z79.899 Other long term (current) drug therapy; J45.909 Unspecified asthma, uncomplicated
CPT/HCPCS: 96376; 99284; 96374; 36415; 85025; 85610; 85730; 80053; 93971 ×2; 73610; 73562; J1170

== ENCOUNTER → 2017-09-13 | Outpatient (CLI) | payer MEDICAID ==
[2017-09-13 10:49] LABS: ABSOLUTE EOSINOPHILS # (AUTO) 0.1 10^3/uL (0.0-0.6); ABSOLUTE LYMPHOCYTES (AUTO) 1.8 10^3/uL (0.5-4.7); ABSOLUTE MONOCYTES (AUTO) 0.4 10^3/uL (0.1-1.4); ABSOLUTE NEUT (AUTO) 3.3 10^3/uL (1.7-8.2); BASOPHILS % (AUTO) 0.5 % (0-2); EOSINOPHILS % (AUTO) 1.3 % (0-6); HEMATOCRIT 39.6 % (36.0-47.0); HEMOGLOBIN 13.2 g/dL (12.0-15.5); LYMPHOCYTES % (AUTO) 31.4 % (13-45); MEAN CORPUSCULAR HEMOGLOBIN 29.9 pg (27.0-33.4); MEAN CORPUSCULAR HGB CONC 33.4 g/dL (32.0-36.0); MEAN CORPUSCULAR VOLUME 90 fl (80-97); MONOCYTES % (AUTO) 7.6 % (3-13); PLATELET COUNT 154 10^3/uL (150-450); RED BLOOD COUNT 4.42 10^6/uL (3.72-5.28); RED CELL DISTRIBUTION WIDTH 13.8 % (11.5-14.0); SEGMENTED NEUTROPHILS % (AUTO) 59.2 % (42-78); TOTAL CELLS COUNTED % (AUTO) 100 %; WHITE BLOOD COUNT 5.6 10^3/uL (4.0-10.5)
[2017-09-13 10:53] LABS: APPEARANCE,URINE CLEAR; BILIRUBIN,URINE NEGATIVE (NEGATIVE); COLOR,URINE YELLOW; GLUCOSE, URINE NEGATIVE (NEGATIVE); KETONES,URINE NEGATIVE (NEGATIVE); LEUKOCYTE ESTERASE,URINE NEGATIVE (NEGATIVE); NITRITE,URINE NEGATIVE (NEGATIVE); PROTEIN,URINE NEGATIVE (NEGATIVE); UROBILINOGEN,URINE NEGATIVE mg/dL (<2.0)
[2017-09-13 10:59] LABS: ANION GAP 12 (5-19); BLOOD UREA NITROGEN 18 mg/dL (7-20); CALCIUM 9.4 mg/dL (8.4-10.2); CARBON DIOXIDE 26 mmol/L (22-30); CHLORIDE 107 mmol/L (98-107); GLUCOSE 96 mg/dL (75-110); POTASSIUM 4.6 mmol/L (3.6-5.0); SODIUM 145.3 mmol/L (137-145)
--- NOTE | 2017-09-13 11:09 | RADIOLOGY REPORT (SQ) ---
EXAM DESCRIPTION: CHEST PA/LATERAL COMPLETED DATE/TIME: 09/13/2017 10:11 am REASON FOR STUDY: ESSENTIAL (PRIMARY) HYPERTENSION COMPARISON: 06/18/2017 EXAM PARAMETERS: NUMBER OF VIEWS: two views TECHNIQUE: Digital Frontal and Lateral radiographic views of the chest acquired. RADIATION DOSE: NA LIMITATIONS: none FINDINGS: LUNGS AND PLEURA: No opacities, masses or pneumothorax. No pleural effusion. MEDIASTINUM AND HILAR STRUCTURES: No masses or contour abnormalities. HEART AND VASCULAR STRUCTURES: Heart normal size. No evidence for failure. BONES: No acute findings. HARDWARE: None in the chest. OTHER: No other significant finding. IMPRESSION: NO SIGNIFICANT RADIOGRAPHIC FINDING IN THE CHEST. TECHNICAL DOCUMENTATION: JOB ID: [id number] [employer]- All Rights Reserved Reading location - IP/workstation name: [email or web address]
--- NOTE | 2017-09-13 20:57 | EKG REPORT ---
SEVERITY:- NORMAL ECG - SINUS RHYTHM : Confirmed by: Breanne Barnett 13-Sep-2017 20:57:15
== END ==
LOC: OD 09:28
PROVIDERS: ATTEND Orthopaedic Surgery
DX: I10 Essential (primary) hypertension (principal)
CPT/HCPCS: 36415; 71046; 80048; 81001; 85025; 93005; 93010

== ENCOUNTER 2017-10-03 05:39 | Inpatient (IN) | payer MEDICAID ==
--- NOTE | 2017-10-01 14:07 | Physician Advisory Note ---
Physician Advisor ProgressNote .: Pursuant to the plan for Suzy Garcia, I have reviewed the medical record for this patient. Physician Advisor Statement: "Surgical necessity": Nicely documented in H&P, particularly the ADLs interfered with, ongoing sx, exam, & x-ray findings. - Details: As per H&P for her 07/25/17 Rt TKA, she had been using Mobic 15mg daily, prednisone 20mg daily, and Tramadol 50mg q6hrs for pain control as nonsurgical option tried. Per this admission's pre-op nurse martina, it appears she has also been using Percocet since then, & has had not only pain but continued significant disabling interference w/ADLs, as evidenced by her PROMIS scoring details. Status: Inpatient status for TKA is reasonable in this case. - Details: Medicaid pt, with morbid obesity/BMI 48.1, tobacco use/abuse/ dependence, asthma, HTN, prior bilat ankle surgeries & Lt toe surgery (per last adm's PT note), who has remained extremely limited in her ADLs despite Rt TKA in July, who needed 3 nights of hospital care & monitoring after that surgery due to relatively slow progress w/PT post-op. It can be reasonable to expect she will need at least 2 nights of hospital care/monitoring after this TKA. Thanks! CK
[~2017-10-03 05:39] MED LIST changes: +BUPIVACAINE INJ/PF LIPOSOME/PF 266 MG/20 ML SDV IJ PRN; +CEFAZOLIN 2 GM/D5W RTU 2 GM/50 ML RTUPB IV ONE; -CEFAZOLIN SODIUM 2 GM in NORMAL SALINE 100 ML IV PRN; +CEFAZOLIN SODIUM 2 GM in NORMAL SALINE 100 ML IV SCH; +IBUPROFEN 800 MG/NS 250 ML IV PRN; +LANSOPRAZOLE 15 MG TAB.RAP.DR PO PRN; -LIDOCAINE 0.5% INJ-PF (5 MG/ML) 50 ML SDV SUBCUT PRN; +OXYCODONE HCL SR 10 MG TABLET PO PRN
[2017-10-03] MEDS ORDERED: THROMBIN (BOVINE) TOPICAL 20000 UNIT VIAL ONE (06:38)
[2017-10-03] MEDS ORDERED: THROMBIN (BOVINE) 5000 UNIT EPITAXIS KIT ONE (06:38)
[2017-10-03] MEDS ORDERED: BUPIVACAINE INJ/PF LIPOSOME/PF 266 MG/20 ML SDV ONE (06:39)
[2017-10-03] MEDS ORDERED: KETAMINE HCL INJ 500 MG/10 ML VIAL ONE (07:09)
[2017-10-03] MEDS ORDERED: MIDAZOLAM 2 MG/2 ML INJ ONE (07:09)
[2017-10-03] MEDS ORDERED: PROPOFOL INJ 200 MG/20 ML VIAL IV ONE (07:09)
[2017-10-03] MEDS ORDERED: LIDOCAINE 2% INJ-PF (20 MG/ML) 10 ML AMPUL ONE (07:09)
[2017-10-03] MEDS ORDERED: ACETAMINOPHEN 1,000 MG/100 ML RTUPB IV ONE (07:09)
[2017-10-03] MEDS ORDERED: FENTANYL CITRATE INJ/PF 100 MCG/2 ML AMPUL ONE (07:09)
[2017-10-03] MEDS ORDERED: BUPIVACAINE HCL/DEX-WATER/PF 15 MG/2 ML AMPULE ONE (07:16)
[2017-10-03] MEDS ORDERED: TRANEXAMIC ACID INJ/PF 1,000 MG/10 ML SDV IV ONE ×2 (07:25→10:43)
[2017-10-03] MEDS ORDERED: EPHEDRINE SULFATE INJ 50 MG/1 ML AMPULE ONE (08:10)
[2017-10-03] MEDS ORDERED: FENTANYL CITRATE INJ/PF 100 MCG/2 ML AMPUL IV PRN ×3 (08:35)
[2017-10-03] MEDS ORDERED: MEPERIDINE HCL/PF INJ 25 MG/1 ML DISP.SYRIN IV PRN (08:35)
[2017-10-03] MEDS ORDERED: DIPHENHYDRAMINE HCL 50 MG/ML VIAL IV PRN ×2 (08:35→10:36)
[2017-10-03] MEDS ORDERED: OXYCODONE-ACETAMINOPHEN 5-325 MG TABLET PO PRN ×2 (08:35)
[2017-10-03] MEDS ORDERED: PROMETHAZINE HCL INJ 25 MG/1 ML VIAL IV PRN ×2 (08:35)
[2017-10-03] MEDS ORDERED: MORPHINE SULFATE 10 MG/ML INJ IV PRN ×3 (08:35→10:36)
--- NOTE | 2017-10-03 10:28 | Operative Report ---
Operative Report DATE OF SURGERY: 10/03/17 PREOPERATIVE DIAGNOSIS: Left knee osteoarthritis POSTOPERATIVE DIAGNOSIS: Same OPERATION: Left total knee arthroplasty SURGEON: RITA CURRAN ANESTHESIA: GA TISSUE REMOVED OR ALTERED: Cuts COMPLICATIONS: None ESTIMATED BLOOD LOSS: 50 mL INTRAOPERATIVE FINDINGS: As above PROCEDURE: Patient received preoperative antibiotics and was taken to the operating room where she received a spinal anesthetic. Patient was placed supine position and a thigh tourniquet was applied to left lower extremity. A bump was applied under buttocks and then the left lower extremity was prepped and draped in a normal sterile surgical fashion. Timeout was done identifying the left knee as the correct site. Esmarch was used to exsanguinate the extremity and the tourniquet was inflated at 320 mmHg. Of note we deflated tourniquet at the end of the procedure at 97 minutes. Midline incision was done over the knee and dissection was taken down to the retinaculum and extensor mechanism and a paramedial arthrotomy was done exposing the knee. Patient had [id number] osteoarthritis as confirmed by x-ray with mild joint effusion. We then proceeded to do a medial release and excision of the medial meniscus and lateral meniscus. We moved remove the fat pad and then we flexed the knee at 90 and then remove the ACL and PCL as well. We subluxed the tibia anteriorly and placed the retractors and proceeded to do our tibial cut first. We drilled intramedullary and placed our intramedullary guide and pin the guide by measuring off the medial side which was the low side. We proceeded to do our tibial cut successfully. I was satisfied with the cut so I then proceeded to turn my attention to the femoral side and drilled intramedullary and then placed my intramedullary guide to do my distal femoral cut. We proceeded to us to pin it in place and then do our use a saw to do my distal femoral cut. Once I was satisfied with my distal femoral cut I removed the guide and then use a spacer to confirm proper balance. Initially I felt that my extension gap was balanced with 11 mm and 13 mm. This was removed and I did proceed to size and do my 4-in-1 cutting block of the femur. I measured and used a size 6 and proceeded to do my 4 and 1 cuts. I then placed the box sealing machine feeder and then do the resected my box portion with a receptive saw and osteotome. I trialed a #6 femur left with a size 6 tibia and 11 spacer. I was satisfied with the flexion extension side proceeded to do my patellar cut using the guide. The patella measured 24 mm and we proceeded to resect 12 mm and left 12 mm behind after my cut was completed. I drilled the holes and placed the trial component 38 and placed in range of motion. I was satisfied with her range of motion and stability so I proceeded to remove all the implants and opened final components of the tibial tray, femur and patella button. I still use the trialed spacers at the end for repeat examination. Once I used copious irrigation and pulse lavage to clean out the bone I then proceeded to mix cement and appropriately cement the tibial component first and remove the excess cement. I then cemented the femoral component and remove the excess cement. I placed a trial spacer and cemented my patellar button. We waited until the cement had hardened and then needed to inject Exparel in the posterior capsule and periosteum. I then proceeded to put the final polyethylene spacer that measured 13 at this point I proceeded to do my. Closure where I used #1 Vicryl for the arthrotomy and quadriceps tendon. I used thrombin for the knee and then I proceeded to close the subcutaneous fat with 0 Vicryl and 2-0 Vicryl for dermis and did a running 3-0 Monocryl subcuticular closure. Dermabond was applied followed by Steri-Strips. 4 x 4 dressing and OpSite dressing was applied the extremity was wrapped with soft roll and Cruz bandage. Tourniquet was let down and drapes were removed. Patient was then transferred to PACU in stable condition.
[2017-10-03] MEDS ORDERED: MAG HYDROX/AL HYDROX/SIMETH SUSP 30 ML UDCUP PO PRN (10:31)
[2017-10-03] MEDS ORDERED: ONDANSETRON HCL INJ/PF 4 MG/2 ML SDV IV PRN (10:31)
[2017-10-03] MEDS ORDERED: RINGERS SOLUTION,LACTATED 1,000 ML IV PRN (10:31)
--- NOTE | 2017-10-03 10:58 | RADIOLOGY REPORT (SQ) ---
EXAM DESCRIPTION: KNEE LEFT 2 VIEWS COMPLETED DATE/TIME: 10/03/2017 10:51 am REASON FOR STUDY: Post OP -Long Cassette in PACU M17.12 UNILATERAL PRIMARY OSTEOARTHRITIS, LEFT KNE E COMPARISON: None. NUMBER OF VIEWS: AP and lateral portable films TECHNIQUE: Digital radiographic images of the left knee post-procedure. LIMITATIONS: None. FINDINGS: BONES: No worrisome or unexpected findings post-procedure. DEVICE: Total knee replacement with patellar resurfacing. SOFT TISSUES: No worrisome findings. Expected postoperative soft tissue changes. IMPRESSION: SATISFACTORY POSTOPERATIVE LEFT KNEE. TECHNICAL DOCUMENTATION: JOB ID: [id number] [employer]- All Rights Reserved Reading location - IP/workstation name: [email or web address]
[2017-10-03] MEDS: OXYCODONE HCL IR 5 MG TABLET PO PRN ×2 (11:55→18:50)
[2017-10-03] MEDS ORDERED: HYDROMORPHONE HCL INJ/PF 2 MG/ML AMPULE IV ONE (12:30)
[2017-10-03] MEDS ORDERED: DIAZEPAM 5 MG TABLET PO PRN (14:04)
[2017-10-03] MEDS: MORPHINE SULFATE 10 MG/ML INJ IV PRN ×2 (16:33→23:09)
[2017-10-03] MEDS: PREGABALIN 75 MG CAPSULE PO SCH (18:50)
[2017-10-03] MEDS: SENNOSIDES/DOCUSATE 8.6-50 MG 1 EACH TABLET PO SCH (18:54)
[2017-10-03] MEDS: OXYCODONE HCL SR 10 MG TABLET PO SCH (22:00)
[2017-10-03] MEDS ORDERED: VANCOMYCIN HCL 1,000 MG in DEXTROSE 5%-WATER 250 ML IV ONE (22:31)
[2017-10-04] MEDS: OXYCODONE HCL IR 5 MG TABLET PO PRN ×4 (00:24→18:19)
[2017-10-04] MEDS: LANSOPRAZOLE 30 MG TAB.RAP.DR PO SCH (06:31)
[2017-10-04 06:52] LABS: HEMATOCRIT 36.6 % (36.0-47.0); HEMOGLOBIN 12.3 g/dL (12.0-15.5); MEAN CORPUSCULAR HEMOGLOBIN 29.5 pg (27.0-33.4); MEAN CORPUSCULAR HGB CONC 33.5 g/dL (32.0-36.0); MEAN CORPUSCULAR VOLUME 88 fl (80-97); PLATELET COUNT 126 10^3/uL (150-450); RED BLOOD COUNT 4.15 10^6/uL (3.72-5.28); RED CELL DISTRIBUTION WIDTH 13.5 % (11.5-14.0); WHITE BLOOD COUNT 10.1 10^3/uL (4.0-10.5)
[2017-10-04 07:09] LABS: ANION GAP 10 (5-19); BLOOD UREA NITROGEN 13 mg/dL (7-20); CALCIUM 8.5 mg/dL (8.4-10.2); CARBON DIOXIDE 24 mmol/L (22-30); CHLORIDE 101 mmol/L (98-107); GLUCOSE 110 mg/dL (75-110); POTASSIUM 4.5 mmol/L (3.6-5.0); SODIUM 134.8 mmol/L (137-145)
[2017-10-04] MEDS: PREGABALIN 75 MG CAPSULE PO SCH ×2 (09:03→18:14)
[2017-10-04] MEDS: OXYCODONE HCL SR 10 MG TABLET PO SCH ×2 (09:04→21:50)
[2017-10-04] MEDS: SENNOSIDES/DOCUSATE 8.6-50 MG 1 EACH TABLET PO SCH ×2 (09:06→18:17)
[2017-10-04] MEDS: PRENATAL VITAMIN W DHA CAPSULE PO SCH (09:06)
[2017-10-04] MEDS ORDERED: DIAZEPAM 5 MG TABLET PO SCH (10:00)
[2017-10-04] MEDS ORDERED: (PENDING PHARMACY ID) (Tiotropium Br/Olodaterol Hcl [Stiolto Respimat Inhal Spray] 1 PUFF) IH SCH (10:00)
[2017-10-04] MEDS: LISINOPRIL 10 MG TABLET PO SCH (11:12)
--- NOTE | 2017-10-04 14:37 | PDOC PROGRESS REPORT ---
Subjective Progress Note for:: 10/04/17 Subjective:: Patient complaining of significant left knee pain postoperatively. Participated with physical therapy. Anticipate leaving this weekend with home health. Reason For Visit: LEFT TOTAL KNEE ARTHROPLASTY Physical Exam Vital Signs: Temp Pulse Resp BP Pulse Ox 37.4 C 94 18 123/64 97 10/04/17 11:06 10/04/17 11:06 10/04/17 11:06 10/04/17 11:06 10/04/17 11:06 Intake & Output 10/03/17 10/04/17 10/05/17 06:59 06:59 06:59 Intake Total 0 3878 Output Total 1570 Balance 0 2308 Weight 130.2 kg General appearance: PRESENT: no acute distress, obese Head exam: PRESENT: atraumatic, normocephalic Adult Front & Back Image: 1 - Dressing is dry clean and intact. Palpable compartments with mild pain. Negative Ana. Neurovascular intact distally with good capillary refill and good sensation to light touch. Range of motion of the left knee is 0 of extension to about 60 of flexion passively. Results Laboratory Results: 10/04/17 05:05 10/04/17 05:05 10/04/17 10/04/17 05:05 05:05 WBC 10.1 RBC 4.15 Hgb 12.3 Hct 36.6 MCV 88 MCH 29.5 MCHC 33.5 RDW 13.5 Plt Count 126 L Sodium 134.8 L Potassium 4.5 Chloride 101 Carbon Dioxide 24 Anion Gap 10 BUN 13 Creatinine 0.58 Est GFR ( Amer) > 60 Est GFR (Non-Af Amer) > 60 Glucose 110 Calcium 8.5 Impressions: Knee X-Ray 10/03/17 10:33 IMPRESSION: SATISFACTORY POSTOPERATIVE LEFT KNEE. Status: Image reviewed by me Assessment & Plan - Diagnosis (1) Status post total knee replacement Qualifiers: Laterality: left Qualified Code(s): Z96.652 - Presence of left artificial knee joint Is this a current diagnosis for this admission?: Yes Plan: Patient will continue physical therapy and anticipate discharge tomorrow or Saturday to home with home health. Prescription in the chart for her narcotics.
[2017-10-04] MEDS: RIVAROXABAN 10 MG TABLET PO SCH (18:14)
[2017-10-04] MEDS ORDERED: OXYCODONE HCL IR 5 MG TABLET PO PRN (19:43)
[2017-10-05] MEDS: OXYCODONE HCL IR 5 MG TABLET PO PRN ×5 (01:45→21:52)
[2017-10-05] MEDS: ACETAMINOPHEN 325 MG TABLET PO PRN ×2 (05:02→20:27)
[2017-10-05] MEDS: LANSOPRAZOLE 30 MG TAB.RAP.DR PO SCH (05:03)
[2017-10-05 06:38] LABS: HEMATOCRIT 33.4 % (36.0-47.0); HEMOGLOBIN 11.2 g/dL (12.0-15.5); MEAN CORPUSCULAR HEMOGLOBIN 29.6 pg (27.0-33.4); MEAN CORPUSCULAR HGB CONC 33.6 g/dL (32.0-36.0); MEAN CORPUSCULAR VOLUME 88 fl (80-97); PLATELET COUNT 119 10^3/uL (150-450); RED BLOOD COUNT 3.79 10^6/uL (3.72-5.28); RED CELL DISTRIBUTION WIDTH 13.4 % (11.5-14.0); WHITE BLOOD COUNT 10.7 10^3/uL (4.0-10.5)
[2017-10-05] MEDS: SENNOSIDES/DOCUSATE 8.6-50 MG 1 EACH TABLET PO SCH ×2 (09:32→17:22)
[2017-10-05] MEDS: PREGABALIN 75 MG CAPSULE PO SCH ×2 (09:32→17:22)
[2017-10-05] MEDS: PRENATAL VITAMIN W DHA CAPSULE PO SCH (09:32)
[2017-10-05] MEDS: OXYCODONE HCL SR 10 MG TABLET PO SCH (09:33)
[2017-10-05] MEDS: LISINOPRIL 10 MG TABLET PO SCH (09:33)
[2017-10-05] MEDS: RIVAROXABAN 10 MG TABLET PO SCH (17:25)
[2017-10-06] MEDS: OXYCODONE HCL IR 5 MG TABLET PO PRN ×5 (02:35→20:49)
[2017-10-06 05:32] LABS: HEMATOCRIT 31.1 % (36.0-47.0); HEMOGLOBIN 10.4 g/dL (12.0-15.5); MEAN CORPUSCULAR HEMOGLOBIN 29.6 pg (27.0-33.4); MEAN CORPUSCULAR HGB CONC 33.6 g/dL (32.0-36.0); MEAN CORPUSCULAR VOLUME 88 fl (80-97); PLATELET COUNT 107 10^3/uL (150-450); RED BLOOD COUNT 3.53 10^6/uL (3.72-5.28); RED CELL DISTRIBUTION WIDTH 13.4 % (11.5-14.0); WHITE BLOOD COUNT 11.9 10^3/uL (4.0-10.5)
[2017-10-06] MEDS: LANSOPRAZOLE 30 MG TAB.RAP.DR PO SCH (06:20)
--- NOTE | 2017-10-06 07:08 | PDOC PROGRESS REPORT ---
Subjective Progress Note for:: 10/06/17 Reason For Visit: LEFT TOTAL KNEE ARTHROPLASTY 62-year-old white female postop day 3 status post left knee arthroplasty. Patient complaining of left heel pain this morning. Episodes of relative hypotension yesterday for which lisinopril has been held. Physical Exam Vital Signs: Temp Pulse Resp BP Pulse Ox 37.2 C 83 15 98/50 L 94 10/05/17 23:40 10/05/17 23:40 10/05/17 23:40 10/06/17 00:33 10/05/17 23:40 Intake & Output 10/05/17 10/06/17 10/07/17 06:59 06:59 06:59 Intake Total 2498 1122 Output Total 1700 1450 Balance 798 -328 Weight 132.9 kg 134 kg Physical Exam: Middle-aged white female lying in bed with what appears to be minimal discomfort General appearance: PRESENT: obese Respiratory exam: PRESENT: unlabored Cardiovascular exam: PRESENT: RRR Pulses: PRESENT: +1 pedal pulses bilateral Vascular exam: PRESENT: normal capillary refill GI/Abdominal exam: PRESENT: soft Rectal exam: PRESENT: deferred Extremities exam: PRESENT: other - Left knee dressing saturated. Its change. Underlying wound is well approximated with a blister at its inferior aspect. Steri-Strips in place. Neurological exam: PRESENT: alert, awake, oriented to person, oriented to place , oriented to time, oriented to situation. ABSENT: motor sensory deficit Psychiatric exam: PRESENT: appropriate affect, normal mood. ABSENT: homicidal ideation, suicidal ideation Skin exam: PRESENT: dry, intact, warm. ABSENT: cyanosis, rash Results Laboratory Results: 10/06/17 05:04 10/04/17 05:05 10/06/17 05:04 WBC 11.9 H RBC 3.53 L Hgb 10.4 L Hct 31.1 L MCV 88 MCH 29.6 MCHC 33.6 RDW 13.4 Plt Count 107 L Impressions: Knee X-Ray 10/03/17 10:33 IMPRESSION: SATISFACTORY POSTOPERATIVE LEFT KNEE. Status: Imported from PACS Assessment & Plan - Diagnosis (1) Status post total knee replacement Qualifiers: Laterality: left Qualified Code(s): Z96.652 - Presence of left artificial knee joint Is this a current diagnosis for this admission?: Yes Plan: 62-year-old white female status post left knee arthroplasty with limited progress with physical therapy. She certainly does not have the functional status for consideration of discharge home today. Dressing changes on a as needed basis. - Time Time Spent with patient: 15-24 minutes Anticipated discharge: Home with Homehealth Within: Other
[2017-10-06] MEDS: SENNOSIDES/DOCUSATE 8.6-50 MG 1 EACH TABLET PO SCH ×2 (12:03→17:58)
[2017-10-06] MEDS: PRENATAL VITAMIN W DHA CAPSULE PO SCH (12:03)
[2017-10-06] MEDS: PREGABALIN 75 MG CAPSULE PO SCH ×2 (12:03→17:58)
[2017-10-06] MEDS: RIVAROXABAN 10 MG TABLET PO SCH (16:29)
[2017-10-06] MEDS: MORPHINE SULFATE 10 MG/ML INJ IV PRN ×2 (18:55→23:04)
[2017-10-07] MEDS: OXYCODONE HCL IR 5 MG TABLET PO PRN ×4 (00:42→14:56)
[2017-10-07] MEDS: LANSOPRAZOLE 30 MG TAB.RAP.DR PO SCH (05:44)
[2017-10-07] MEDS: MORPHINE SULFATE 10 MG/ML INJ IV PRN ×2 (05:51→10:31)
[2017-10-07] MEDS: PREGABALIN 75 MG CAPSULE PO SCH (09:30)
[2017-10-07] MEDS: PRENATAL VITAMIN W DHA CAPSULE PO SCH (09:30)
[2017-10-07] MEDS: SENNOSIDES/DOCUSATE 8.6-50 MG 1 EACH TABLET PO SCH (09:30)
[2017-10-07] MEDS ORDERED: (PENDING PHARMACY ID) (Tiotropium Br/Olodaterol Hcl [Stiolto Respimat Inhal Spray] 1 PUFF) IH PRN ×2 (12:31→12:46)
--- NOTE | 2017-10-07 12:41 | PDOC PROGRESS REPORT ---
Subjective Progress Note for:: 10/07/17 Subjective:: Patient no issues overnight except for mild drainage of the incision. Wants to go home today. Is calling to make sure that they can placed around for her to steps at her house. Reason For Visit: LEFT TOTAL KNEE ARTHROPLASTY Physical Exam Vital Signs: Temp Pulse Resp BP Pulse Ox 37.3 C 97 18 121/61 99 10/07/17 09:13 10/07/17 09:13 10/07/17 09:13 10/07/17 09:13 10/07/17 09:13 Intake & Output 10/06/17 10/07/17 10/08/17 06:59 06:59 06:59 Intake Total 1122 2120 Output Total 1450 1050 Balance -328 1070 Weight 134 kg 134.5 kg Adult Front & Back Image: 1 - Patient only able to flex to about 60 with significant pain. Minimal to no bruising. Does have some serosanguineous drainage from the incision. 4 x 4 dressing ABD and a soft roll was used to do a reinforcement of the dressing. Neurovascular intact distally with soft cast. Negative Sharon sign Results Laboratory Results: 10/06/17 05:04 10/04/17 05:05 Impressions: Knee X-Ray 10/03/17 10:33 IMPRESSION: SATISFACTORY POSTOPERATIVE LEFT KNEE. Status: Image reviewed by me Assessment & Plan - Diagnosis (1) Status post total knee replacement Qualifiers: Laterality: left Qualified Code(s): Z96.652 - Presence of left artificial knee joint Is this a current diagnosis for this admission?: Yes - Plan Summary Plan Summary: Patient is postop day 4 from left total knee arthroplasty. Weight-bear as tolerated and continue physical therapy. Patient is set up for home health but is awaiting a ramp to be able to enter her house which is 2 steps. State that the patient is awaiting for the ramp today if not tomorrow. She is okay to be discharged today if the wrap is applied today. Prescriptions are in the chart if she decides to be discharged and will be happy to give the order. Recommend dressing changes daily. We will follow-up in 7-10 days.
[2017-10-07] MEDS ORDERED: ALBUTEROL SULFATE HFA (90 MCG/PUFF) 200 PUFF/8.5 GM MDI IH PRN (13:00)
[2017-10-07 18:50] VITALS: BP 121/70
--- NOTE | 2017-11-03 13:44 | PDOC DISCHARGE SUMMARY ---
General - Admit/Disc Date/PCP Admission Date/Primary Care Provider: 10/03/17 05:39 DORON KLEIN Discharge Date: 10/07/17 - Discharge Diagnosis (1) Status post total knee replacement Is this a current diagnosis for this admission?: Yes - Additional Information Resuscitation Status: Full Code Discharge Diet: As Tolerated Discharge Activity: Activity As Tolerated, Balance Activity w/Rest, Keep Legs Elevated, No Lifting/Push/Pulling, Slowly Increase Activity, No tub bath, Walk Frequently Prescriptions: Oxycodone HCl [Oxy-Ir 5 mg Tablet] 5 - 10 mg PO Q4HP PRN #60 tablet PRN Reason: For Pain Oxycodone HCl [Oxycontin Sr 10 mg Tablet] 20 mg PO Q12 10 Days tab.sr.12h Rivaroxaban [Xarelto 10 mg Tablet] 10 mg PO DAILY #14 tablet Home Medications: Albuterol Sulfate [Proair HFA] 2 puff IH Q4HP PRN 10/03/17 Diazepam [Valium 5 mg Tablet] 5 mg PO DAILYP PRN 10/03/17 Lisinopril [Prinivil 10 mg Tablet] 10 mg PO DAILY 10/03/17 Tiotropium Br/Olodaterol HCl [Stiolto Respimat Inhal [place]] 1 puff IH DAILY Oxycodone HCl [Oxy-Ir 5 mg Tablet] 5 - 10 mg PO Q4HP PRN #60 tablet 10/04/17 Oxycodone HCl [Oxycontin Sr 10 mg Tablet] 20 mg PO Q12 10 Days tab.sr.12h 10/04 Rivaroxaban [Xarelto 10 mg Tablet] 10 mg PO DAILY #14 tablet 10/04/17 History of Present Illness Patient complains of: Left knee arthritis History of Present Illness: JULIAN LARA is a 62 year old female who was being treated for nonoperative treatment of her left knee arthritis. Recently in the last 3 months underwent a right total knee arthroplasty. Patient finally decided to proceed with a left total knee arthroplasty and underwent surgery on 10/03/2017. Patient was discharged on 10/07/2017 home. Denies any numbness or tingling or paresthesias. Denies any fevers or chills. Hospital Course Hospital Course: Patient on 10/03/2017 underwent left total knee arthroplasty with no issues. Patient vital signs were stable throughout her hospital stay sent for on postop day 3 where they had to hold her lisinopril for borderline blood pressure. 10/04- patient has significant pain but participated with therapy. On 10/07/2017 patient level was better improved and therapy had progressed significantly where the patient was able to be discharged home. Physical Exam Vital Signs: Temp Pulse Resp BP Pulse Ox 37.3 C 97 18 98/50 L 99 10/07/17 16:20 10/07/17 16:20 10/07/17 16:20 10/07/17 16:20 10/07/17 16:20 General appearance: PRESENT: no acute distress Head exam: PRESENT: atraumatic, normocephalic Eye exam: PRESENT: EOMI, PERRLA Neck exam: ABSENT: lymphadenopathy, thyromegaly Respiratory exam: PRESENT: symmetrical, unlabored. ABSENT: accessory muscle use , tachypnea Pulses: PRESENT: +2 pedal pulses bilateral Psychiatric exam: PRESENT: appropriate affect, normal mood Adult Front & Back Image: 1 - Incision is dry clean and intact. Lower extremity swelling present with soft cast. Negative Homans sign. With intact EHL FHL and tibialis anterior motor 5 out of 5. Range of motion of the knee is -10 of extension to about 80 of flexion. Results Laboratory Results: 10/06/17 05:04 10/04/17 05:05 Impressions: Knee X-Ray 10/03/17 10:33 IMPRESSION: SATISFACTORY POSTOPERATIVE LEFT KNEE. Qualifiers - * PATIENT BEING DISCHARGED WITH ANY OF THE FOLLOWING DIAGNOSIS: No Plan Discharge Plan: Patient discharged with plan to weight-bear as tolerated with range of motion as tolerated. Plan for home health. Xarelto for DVT prophylaxis and oxycodone for pain control. Follow-up in 7-10 days in the office.
== END 2017-10-07 17:30 | disposition home health service (06) | DRG 470 ==
LOC: INOR 05:39 → 4S 11:13
PROVIDERS: ADMIT Orthopaedic Surgery; ATTEND Orthopaedic Surgery
PROC: 0SRD0J9 Replacement of Left Knee Joint with Synthetic Substitute, Cemented, Open Approach (ICD-10-PCS; principal; 2017-10-03 07:30)
DX: M17.12 Unilateral primary osteoarthritis, left knee (principal); Z68.42 Body mass index [BMI] 45.0-49.9, adult; I10 Essential (primary) hypertension; Z96.651 Presence of right artificial knee joint; E66.01 Morbid (severe) obesity due to excess calories; Z79.899 Other long term (current) drug therapy
CPT/HCPCS: 01402; 36415; 80048; 85027; 88305; 88311; 94799; C9290; J0131; J0690; J1170; J1741; J2250; J2270; J2704; J3010; J3370; J3490; J7050; J7060; J7120

== ENCOUNTER 2017-10-26 13:46 | Emergency (ER) | payer MEDICAID ==
[2017-10-26 14:00] VITALS: BP 137/106
[2017-10-26] MEDS ORDERED: ACETAMINOPHEN 325 MG TABLET PO ONE (14:24)
--- NOTE | 2017-10-26 14:27 | ER Document Report ---
ED Medical Screen (RME) - General Chief Complaint: Leg Pain Stated Complaint: LEG PAIN Time Seen by Provider: 10/26/17 14:20 Notes: RAPID MEDICAL EVALUATION DISCLOSURE I have seen this patient as part of a Rapid Medical Evaluation and, if applicable, placed any initially appropriate orders. The patient will be seen and fully evaluated, including a full history and physical exam, by a provider ( in Main ED or Fast Track) when a room becomes available. 62-year-old female status post recent left knee replacement by Dr Baker with subsequent infection and wound VAC placement here today with complaints of severe left knee pain that started early this morning. She has a wound VAC in place that "keeps buzzing and will not stop going off". She does not know what it means when the wound VAC device start some buzzing. She denies any fevers chills. EXAM Dressing to left knee with some dried blood and purulence Tubing seen going from dressing to wound VAC device Wound VAC device is buzzing every few seconds TRAVEL OUTSIDE OF THE [place] IN LAST 30 DAYS: No - Related Data Allergies/Adverse Reactions: No Known Allergies Allergy (Verified 09/16/17 13:04) Past Medical History - Past Medical History Cardiac Medical History: Reports: Hx Hypertension - ON MEDS Denies: Hx Atrial Fibrillation, Hx Congestive Heart Failure, Hx Coronary Artery Disease, Hx Heart Attack, Hx Hypercholesterolemia, Hx Peripheral Vascular Disease, Hx Pulmonary Embolism, Hx Heart Murmur Pulmonary Medical History: Reports: Hx Asthma - PRO AIR PRN, Hx Pneumonia - 4 YRS AGO Denies: Hx Bronchitis, Hx COPD, Hx Respiratory Failure, Hx Sleep Apnea, Hx Tuberculosis Neurological Medical History: Renal/ Medical History: Denies: Hx Peritoneal Dialysis Malignancy Medical History: Denies: Hx Lung Cancer Musculoskeltal Medical History: Reports Hx Arthritis - KNEES , Denies Hx Fibromyalgia, Denies Hx Muscular Dystrophy Psychiatric Medical History: Denies: Hx Bipolar Disorder, Hx Depression, Hx Post Traumatic Stress Disorder , Hx Schizophrenia Traumatic Medical History: Reports: Hx Fractures - foot Past Surgical History: Reports: Hx Orthopedic Surgery - R knee replacement, right ankle surgery, Hx Tonsillectomy, Hx Tubal Ligation. Denies: Hx Appendectomy, Hx Bowel Surgery, Hx Section, Hx Cholecystectomy, Hx Coronary Artery Bypass Graft, Hx Gastric Bypass Surgery, Hx Herniorrhaphy, Hx Hysterectomy, Hx Mastectomy, Hx Pacemaker - Immunizations Hx Diphtheria, Pertussis, Tetanus Vaccination: No History of Influenza Vaccine for 01/2017 - 06/2017 Season: No Physical Exam - Vital signs Vitals: Temp Pulse Resp BP Pulse Ox 98.4 F 79 20 137/106 H 100 10/26/17 13:56 10/26/17 13:56 10/26/17 13:56 10/26/17 13:56 10/26/17 13:56 Course - Vital Signs Vital signs: Temp Pulse Resp BP Pulse Ox 98.4 F 79 20 137/106 H 100 10/26/17 13:56 10/26/17 13:56 10/26/17 13:56 10/26/17 13:56 10/26/17 13:56 Doctor's Discharge - Discharge Referrals: VANESA URBINA, [facility] [Primary Care Provider] - Follow up as needed
[2017-10-26 15:40] LABS: ABSOLUTE EOSINOPHILS # (AUTO) 0.1 10^3/uL (0.0-0.6); ABSOLUTE LYMPHOCYTES (AUTO) 1.2 10^3/uL (0.5-4.7); ABSOLUTE MONOCYTES (AUTO) 0.4 10^3/uL (0.1-1.4); ABSOLUTE NEUT (AUTO) 2.4 10^3/uL (1.7-8.2); BASOPHILS % (AUTO) 1.1 % (0-2); EOSINOPHILS % (AUTO) 2.8 % (0-6); HEMATOCRIT 37.9 % (36.0-47.0); HEMOGLOBIN 12.5 g/dL (12.0-15.5); LYMPHOCYTES % (AUTO) 28.7 % (13-45); MEAN CORPUSCULAR HEMOGLOBIN 29.3 pg (27.0-33.4); MEAN CORPUSCULAR HGB CONC 32.9 g/dL (32.0-36.0); MEAN CORPUSCULAR VOLUME 89 fl (80-97); MONOCYTES % (AUTO) 9.9 % (3-13); PLATELET COUNT 199 10^3/uL (150-450); RED BLOOD COUNT 4.26 10^6/uL (3.72-5.28); SEGMENTED NEUTROPHILS % (AUTO) 57.5 % (42-78); TOTAL CELLS COUNTED % (AUTO) 100 %; WHITE BLOOD COUNT 4.1 10^3/uL (4.0-10.5)
--- NOTE | 2017-10-26 15:48 | RADIOLOGY REPORT (SQ) ---
EXAM DESCRIPTION: KNEE LEFT 3 VIEWS COMPLETED DATE/TIME: 10/26/2017 3:37 pm REASON FOR STUDY: recent L knee replacement now sig pain; eval gas COMPARISON: None. NUMBER OF VIEWS: Three views. TECHNIQUE: AP, lateral, and sunrise patella radiographic images acquired of the left knee. LIMITATIONS: None. FINDINGS: MINERALIZATION: Normal. BONES: Left Total knee arthroplasty hardware has an expected appearance. No acute fracture or disloc ation. No worrisome bone lesions. JOINT: No effusion. SOFT TISSUES: Diffuse soft tissue swelling. OTHER: No other significant finding. IMPRESSION: Left Total knee arthroplasty hardware has an expected appearance. No acute osseous find ings. TECHNICAL DOCUMENTATION: JOB ID: [id number] [place]-72 2010 [employer]- All Rights Reserved Reading location - IP/workstation name: [employer]
[2017-10-26 16:05] LABS: ANION GAP 10 (5-19); BLOOD UREA NITROGEN 19 mg/dL (7-20); CALCIUM 9.2 mg/dL (8.4-10.2); CARBON DIOXIDE 26 mmol/L (22-30); CHLORIDE 109 mmol/L (98-107); GLUCOSE 82 mg/dL (75-110); POTASSIUM 4.4 mmol/L (3.6-5.0); SODIUM 144.8 mmol/L (137-145)
[2017-10-26] MEDS ORDERED: HYDROCODONE/ACETAMINOPHEN 5-325 MG TABLET PO ONE (16:17)
--- NOTE | 2017-10-26 16:17 | ER Document Report ---
HPI - HPI Patient complains to provider of: Wound VAC check Onset: This afternoon Onset/Duration: Gradual Pain Level: 4 Context: Patient states that her wound VAC started to alarm this afternoon. Patient states that she has noted some pressure to her left knee. Patient had a knee replacement performed October 03 and the wound later became infected. Patient states that she had a wound VAC placed 1 week ago. Patient states that the wound VAC is continued to buzz today. Patient denies any fever. Patient denies any injury to the knee. Patient states she ran out of her pain medication today. Associated Symptoms: Other - Left knee pain, wound VAC beeping Exacerbated by: Denies Relieved by: Denies Similar symptoms previously: No Recently seen / treated by doctor: No - ROS ROS below otherwise negative: Yes Systems Reviewed and Negative: Yes All other systems reviewed and negative - CONSTITUTIONAL Constitutional: DENIES: Fever - GASTROINTESTINAL Gastrointestinal: DENIES: Nausea - REPRODUCTIVE Reproductive: DENIES: : - MUSCULOSKELETAL Musculoskeletal: REPORTS: Extremity pain - DERM Skin Color: Normal, [place] Past Medical History - General Information source: Patient - Social History Smoking Status: Current Every Day Smoker Chew tobacco use (# tins/day): No Smoking Education Provided: Yes Frequency of alcohol use: None Drug Abuse: None Occupation: None Family History: None Patient has suicidal ideation: No Patient has homicidal ideation: No - Past Medical History Cardiac Medical History: Reports: Hx Hypertension - ON MEDS Pulmonary Medical History: Reports: Hx Asthma - PRO AIR PRN, Hx Pneumonia - 4 YRS AGO Denies: Hx Bronchitis, Hx COPD, Hx Respiratory Failure, Hx Sleep Apnea, Hx Tuberculosis Neurological Medical History: Renal/ Medical History: Denies: Hx Peritoneal Dialysis Musculoskeletal Medical History: Reports Hx Arthritis - KNEES Traumatic Medical History: Reports: Hx Fractures - foot Past Surgical History: Reports: Hx Orthopedic Surgery - R knee replacement, right ankle surgery, Hx Tonsillectomy, Hx Tubal Ligation - Immunizations Hx Diphtheria, Pertussis, Tetanus Vaccination: No Vertical Provider Document - CONSTITUTIONAL Agree With Documented VS: Yes Exam Limitations: No Limitations General Appearance: WD/WN, No Apparent Distress - INFECTION CONTROL TRAVEL OUTSIDE OF THE [place] IN LAST 30 DAYS: No - HEENT HEENT: Atraumatic, Normocephalic - NECK Neck: Normal Inspection - RESPIRATORY Respiratory: Breath Sounds Normal, No Respiratory Distress - CARDIOVASCULAR Cardiovascular: Regular Rate, Regular Rhythm Pulses: Normal: Dorsalis pedis - MUSCULOSKELETAL/EXTREMETIES Musculoskeletal/Extremeties: MAEW, Tender - left knee tenderness, Edema - 1+ edema left knee Notes: Dressing with wound VAC in place to left knee - NEURO Level of Consciousness: Awake, Alert, Appropriate Motor/Sensory: No Motor Deficit - DERM Integumentary: Warm, Dry Course - Re-evaluation Re-evalutation: 10/26/17 16:[address] Wright's cell phone for return call. Mental Health Worker states that this is the only number they have for him to be contacted at today. 10/26/17 16:[address] Wright regarding patient presentation. States that wound VAC is probably at the end of its battery life and advises removing the dressing. Patient's wound with a few areas with moist exudate, no erythema. Patient without any fever or leukocytosis. Dr. Wright advises placing a dressing on wound and having patient follow up Saturday for recheck. - Vital Signs Vital signs: Temp Pulse Resp BP Pulse Ox 98.4 F 79 20 137/106 H 100 10/26/17 13:56 10/26/17 13:56 10/26/17 13:56 10/26/17 13:56 10/26/17 13:56 - Laboratory Result Diagrams: 10/26/17 15:10 10/26/17 15:10 Laboratory results interpreted by me: 10/26/17 15:10 Chloride 109 H 10/26/17 16:59 Labs- Entire Visit 10/26/17 10/26/17 15:10 15:10 WBC 4.1 RBC 4.26 Hgb 12.5 Hct 37.9 MCV 89 MCH 29.3 MCHC 32.9 RDW 14.0 Plt Count 199 Seg Neutrophils % 57.5 Lymphocytes % 28.7 Monocytes % 9.9 Eosinophils % 2.8 Basophils % 1.1 Absolute Neutrophils 2.4 Absolute Lymphocytes 1.2 Absolute Monocytes 0.4 Absolute Eosinophils 0.1 Absolute Basophils 0.0 Sodium 144.8 Potassium 4.4 Chloride 109 H Carbon Dioxide 26 Anion Gap 10 BUN 19 Creatinine 0.63 Est GFR ( Amer) > 60 Est GFR (Non-Af Amer) > 60 Glucose 82 Calcium 9.2 - Diagnostic Test Radiology reviewed: Reports reviewed Discharge - Discharge Clinical Impression: Encounter for management of wound VAC Condition: Stable Disposition: HOME, SELF-CARE Instructions: Dressing Instructions for Open Wounds ([facility]) Additional Instructions: Return immediately for any new or worsening symptoms Followup with your primary care provider, call tomorrow to make a followup appointment Keep wound covered, change dressing daily as needed Follow-up with orthopedics on Saturday for recheck Return for any fever, increased pain, redness or any other concerns Forms: Smoking Cessation Education Referrals: VANESA URBINA FNP-C [Primary Care Provider] - Follow up as needed RITA MANLEY MD [ACTIVE STAFF] - 10/28/17
== END 2017-10-26 17:25 | disposition home or self-care (01) ==
LOC: ER 13:46
DX: T81.89XA Other complications of procedures, not elsewhere classified, initial encounter (principal); M79.605 Pain in left leg; Z96.652 Presence of left artificial knee joint; F17.200 Nicotine dependence, unspecified, uncomplicated; I10 Essential (primary) hypertension; Z79.899 Other long term (current) drug therapy; J45.909 Unspecified asthma, uncomplicated
CPT/HCPCS: 99283; 36415; 87040; 85025; 80048; 73562; J3490